=== PATIENT | female | born 1995 | race Caucasian/White ===

== ENCOUNTER 2025-06-09 11:40 | Observation (INO) | payer OTHER, SELFPAY ==
--- OUTSIDE RECORDS SUMMARY | 2025-06-09 11:54 | XMS_ITS | Encounter Summary ---
Author Organization [facility] Address [address] [place] [address] Care Team Providers Care Building Maintenance Technician Name Role Phone Jack Cruz MD Primary Care Provider [phone] Encounter Details Date Type Department Care Team (Late st Contact Info) Description 08/01/2019 Telephone [facility] [address] [place] [address] Alvin Pickard MD [address] [place] [id number] Social History Tobacco Use Types Packs/Day Years Used Date Smoking Tobacco: Never Smokeless Tobacco: Never Alcohol Use Standard Drinks/Week Comments Yes 0 (1 standard drink = 0.6 oz pur e alcohol) AUDIT-C Answer Date Recorded Frequency of Alcohol Consumption Monthly or less 07/08/2019 Average Number of Drinks Not on file 020 Frequency of Binge Drinking Not on file 06/16 Comments Unknown Sex and Gender Information Value Date Recorded Sex Assigned at Not on file Legal Sex Female 8:25 AM CDT Gender Identity Not on file Sexual Orientation Not on file documented as of this encounter Miscellaneous Notes * Telephone Encounter - Janessa Thomas - 08/01/2019 11:47 AM CST Per fax back cpt code 1328-50 approved, auth # [id number], 08/18/19 - 10/18/19. NPR for cpt code 56281-73. B2B OUTSIDE SALES REPRESENTATIVE documented in this encounter Plan of Treatment Not on file documented as of this encounter Visit Diagnoses Not on filedocumented in this encounter Additional Health Concerns Infection Onset Date Last Indicated Resolved Time COVID-19 Under Investigation 10/31/2019 10/31/2019 11/01/2019 6:33 AM CDT documented as of this encounter Care Teams Building Maintenance Technician Relationship Specialty Start Date End Date Jack Cruz MD PCP - General 06/14/19 documented as of this encounter
--- OUTSIDE RECORDS SUMMARY | 2025-06-09 11:54 | XMS_ITS | Clinical Summary ---
Author Organization [facility] Address [address] [place] [address] Care Team Providers Care Pressure Tank Operator Name Role Phone Unavailable Primary Care Provider Unavailabl e Social History Tobacco Use Types Packs/Day Years Used Date Smoking Tobacco: Never Assessed Comments Unknown Sex and Gender Information Value Date Recorded Sex Assigned at Not on file Legal Sex Female 11:25 PM MANAGER IMAGE Gender Identity Not on file Sexual Orientation Not on file Plan of Treatment Health Maintenance Due Date Last Done Comments Cervical Cancer Screening Pa p Smear (Age 21 to 29) Every 3 Years 1995 Cervical Cancer Screening 1995 Annual Physical 10/20/1998 Hepatitis C 10/20/2013 DTaP, Tdap and Td Vaccines ( 1 - Tdap) 10/20/2014 Hepatitis B Vaccines (1 of 3 - 19+ 3-dose series) 10/20/2014 HPV Vaccines (1 - 3-dose SCD M series) 10/20/2022 COVID-19 Vaccine (1 - 2024-2 6 season) 2025 Influenza Adult (#1) 2025 Hepatitis A Vaccines Aged Out No long er eligible based on patient's age to complete this topic Meningococcal B Vaccine Aged Out No l onger eligible based on patient's age to complete this topic Meningococcal Vaccine Aged Out No kat micki eligible based on patient's age to complete this topic Pneumococcal Vaccine: Pediat rics (0 to 5 Years) and At-Risk Patients (6 to 49 Years) Aged Out No longer eligible b ased on patient's age to complete this topic RSV Immunizations Under 20 Months Aged Out No longer eligible based on patient's age to complete this topic
--- OUTSIDE RECORDS SUMMARY | 2025-06-09 11:54 | XMS_ITS | Clinical Summary ---
Author Organization [facility] Address [address] [facility] [address] [place] [address] Care Team Providers Care Caser Name Role Phone Jack Cruz MD Primary Care Provider [phone] Source Comments [facility],non-owned Affiliates and Associated Physician Practices is amultiple site organization consisting of ambulatory clinics and hospital sitesin [place], [place], [place] and [place]. This disclosure is being madepursuant to the Care Everywhere program and may not contain all information available regarding this patient. Last updated 18.[facility] Allergies Active Allergy Reactions Criticality Noted Date Comments Nitrofurantoin Nausea and/or Vomiting 0 Medications * Be aware that medications may not be up to date on this document. Alwaysverify current medications with the patient. lamoTRIgine (LAMICTAL) 25 MG tablet 50 mg 9 Active buPROPion SR 12hr (WELLBUTRIN-SR) 100 MG tablet 150 mg 9 Active XULANE 150-35 MCG/24HR patch 9 Active ondansetron (ZOFRAN) 4 MG tablet Take 4 mg by mouth every 6 hours as needed for Nausea/Vomiting Active HYDROcodone-justine taminophen (NORCO) 5-325 MG tablet Take 1 tablet by mouth every 8 hours as needed for Pain [id number], [id number] 15 tablet 0 Active Additional Information Patient not taking.Reported on 11/18/2019 ondansetron, disintegrating, (ZOFRAN ODT) 4 MG tablet Take 4 mg by mouth 0 Active Active Problems Problem Noted Date Diagnosed Date S/P breast reconstruction, bilateral 11/08/2019 Preop examination 10/31/2019 Breast pain 07/08/2019 Social History Tobacco Use Types Packs/Day Years Used Date Smoking Tobacco: Never Smokeless Tobacco: Never Alcohol Use Standard Drinks/Week Comments Yes 0 (1 standard drink = 0.6 oz pur e alcohol) occ AUDIT-C Answer Date Recorded Frequency of Alcohol Consumption Monthly or less 07/08/2019 Average Number of Drinks Not on file 020 Frequency of Binge Drinking Not on file 06/16 Comments No Sex and Gender Information Value Date Recorded Sex Assigned at Not on file Legal Sex Female 8:25 AM CDT Gender Identity Not on file Sexual Orientation Not on file Last Filed Vital Signs Vital Sign Reading Time Taken Comments Blood Pressure 129/87 11/18/2019 1:25 PM CDT Pulse 78 11/18/2019 1:25 PM CDT Temperature 36.8 C (98.3 F) 11/18/2019 1:25 PM CDT Respiratory Rate 20 11/11/2019 2:09 PM CDT Oxygen Saturation 99% 11/18/2019 1:25 PM CDT Inhaled Oxygen Concentration - - Weight 67.6 kg (149 lb) 11/18/2019 1:25 PM CDT Height 172.7 cm (5' 8) 11/18/2019 1:25 PM CDT Body Mass Index 22.66 11/18/2019 1:25 PM CDT Plan of Treatment Health Maintenance Due Date Last Done Comments HIV SCREENING 10/20/2010 HEPATITIS C SCREENING 10/16/2013 DTAP/TDAP/TD VACCINES (1 - Tdap) 10/20/2014 HEPATITIS B VACCINE (1 of 3 - 19+ 3-dose series) 10/20/2014 PAP SMEAR 10/20/2016 HPV VACCINE (1 - 3-dose SCDM series) 10/20/2022 DEPRESSION SCREENING 06/15/2024 COVID-19 VACCINE (1 - 2024-2 6 season) 2025 INFLUENZA VACCINE (#1) 2025 04/18/2018 ZOSTER VACCINE (1 of 2) 10/20/2045 HIB VACCINE Aged Out No longer eligi ble based on patient's age to complete this topic MENINGOCOCCAL (Group B) VACC INE SHARED DECISION-MAKING Aged Out No longer eligibl e based on patient's age to complete this topic MENINGOCOCCAL GROUPS A/C/Y/W VACCINE Aged Out No longer eligible b ased on patient's age to complete this topic PNEUMOCOCCAL VACCINE Aged Out No long er eligible based on patient's age to complete this topic Insurance [facility] Care Teams Caser Relationship Specialty Start Date End Date Jack Cruz MD PCP - General 06/14/19
--- OUTSIDE RECORDS SUMMARY | 2025-06-09 11:54 | XMS_ITS | Clinical Summary ---
Author Organization [facility] Address [address] [place] [address] Phone Care Team Providers Care Regulatory Assistant Name Role Phone Raul Peña APRN, METAL PATTERNMAKER Primary Care Pr ovider Allergies Active Allergy Reactions Criticality Noted Date Comments Nitrofuran Derivatives Vomiting 12/05/2019 Medications sertraline (ZOLOFT) 50 MG TabletIndication s:Moderate episode of recurrent major depressive disorder Take 1 Tablet by mouth daily. 30 Tablet 2 12/12/2024 Active Active Problems Problem Noted Date Diagnosed Date MDD (major depressive disord er), recurrent episode, moderate 07/01/2024 Borderline personality disorder 05/03/2024 Painful piezogenic pedal papules 07/24/2021 S/P breast reconstruction, bilateral 11/08/2019 Breast pain 07/08/2019 Personality disorder 05/05/2019 Depression Comments Yes Encounters Date Type Department Care Team Description 03/24/2025 2:15 PM CDT [facility] [address] [place] [id number] Danisha Mar LCPC MDD (major depressive disorder), recurrent episode, moderate (Primary Dx) Discharge Disposition: Discharged to home or Selfcare 03/24/2025 Travel 03/17/2025 8:30 AM CDT [facility] [address] [place] [address] Danisha Mar, [facility] MDD (major depressive disorder), recurrent episode, moderate (Primary Dx); Borderline personality disorder Discharge Disposition: Discharged to home or Selfcare 03/17/2025 Travel from Last 3 Months Immunizations Immunization Administration Dates Next Due Hepatitis B Vaccine 02/03/2020 Influenza Vaccine, MDCK,quad rivalent, pres free 03/20/2020 Influenza Vaccine, Quadrivalent, PF 05/03/2021,1 06/18/2017 TB Skin Test 10/29/2021,02/03/2020,12/22/2019 TDAP Vaccine 12/22/2019 Family History Medical History Relation Name Comments Alcohol Abuse Father Chris Bipolar Disorder Father Chris Diabetes Father Chris Diabetes Maternal Grandfather Juan Depression Mother Mykel Thyroid Disease Mother Mykel Low thyroid Relation Name Status Comments Brother Iggy Alive Father Chris Alive Maternal Grandfather Juan Mother Mykel Alive Sister Angelica Alive Social History Tobacco Use Types Packs/Day Years Used Date Smoking Tobacco: Never Smokeless Tobacco: Never Tobacco Cessation:Counseling Given: No Alcohol Use Standard Drinks/Week Comments Not Currently 0 (1 standard drink = 0.6 oz pur e alcohol) Rarely [employer] Answer Date Recorded In the past 12 months has [employer], gas, oil, or water [employer] threatened to shut off services in your home? Yes 07/04/2024 Social Connection and Isolation Panel Answer Date Recorded In a typical week, how many times do you talk on the phone with family, friends, or neighbors? More than three times a week 07/04/2024 How often do you get togethe r with friends or relatives? Three times a week 07/04/2024 How often do you attend chur ch or tenriism services? 1 to 4 times per year 07/04/2024 Do you belong to any clubs o r organizations such as synagogue groups, unions, fraternal or athletic groups, or school groups? No 07/04/2024 How often do you attend meet ings of the clubs or organizations you belong to? 1 to 4 times per year 07/04/2024 Are you , , di vorced, , never , or living with a partner? 07/04/2024 AUDIT-C Answer Date Recorded Q1: How often do you have a drink containing alc ohol? Monthly or less 07/04/2024 Q2: How many drinks containi ng alcohol do you have on a typical day when you are drinking? 3 or 4 07/04/2024 Q3: How often do you have si x or more drinks on one occasion? Never 07/04/2024 Overall Financial Resource Strain (CARDIA) Answe r Date Recorded How hard is it for you to pa y for the very basics like food, housing, medical care, and heating? Hard 07/04/2024 PHQ-2 Answer Date Recorded Total Score - Questions 1-9 14 11/15 [facility] - Occupational Stress Questionnaire Answer Date Recorded Do you feel stress - tense, restless, nervous, or anxious, or unable to sleep at night because your mind is troubled all the time - these days? Very much 07/04/2024 Exercise Vital Sign Answer Date Recorde d On average, how many days pe r week do you engage in moderate to strenuous exercise (like a brisk walk)? 5 days 07/04/2024 On average, how many minutes do you engage in exercise at this level? 60 min 07/04/2024 Hunger Vital Sign Answer Date Recorded Within the past 12 months, y ou worried that your food would run out before you got the money to buy more. Sometimes true Within the past 12 months, t he food you bought just didn't last and you didn't have money to get more. Sometimes true PRAPARE - Transportation Answer Date Re corded In the past 12 months, has l ack of transportation kept you from medical appointments or from getting medications? No 06/16 In the past 12 months, has l ack of transportation kept you from meetings, work, or from getting things needed for daily living? No 07/04/2024 Housing Stability Vital Sign Answer Cornelio e Recorded In the last 12 months, was t here a time when you were not able to pay the mortgage or rent on time? Yes 07/04/2024 In the past 12 months, how m any times have you moved where you were living? 1 07/04/2024 At any time in the past 12 m [facility], were you homeless or living in a halfway (including now)? No 07/04/2024 Education Answer Date Recorded What is the highest level of school you have completed or the highest degree you have received? Associate degree: academic program 07/29/2021 Sexually Active Control Partners Comments Yes Male Condom, Oral Contraceptive Male Comments Yes Sex and Gender Information Value Date Recorded Sex Assigned at Not on file Legal Sex Female 9:43 AM CDT Gender Identity Not on file Sexual Orientation Not on file Last Filed Vital Signs Vital Sign Reading Time Taken Comments Blood Pressure 130/82 12/12/2024 3:28 PM CDT Pulse 99 12/12/2024 3:28 PM CDT Temperature 36.3 C (97.4 F) 12/12/2024 3:28 PM CDT Respiratory Rate 16 12/12/2024 3:28 PM CDT Oxygen Saturation 100% 12/12/2024 3:28 PM CDT Inhaled Oxygen Concentration - - Weight 73 kg (160 lb 14.4 oz) 12/12/2024 3:28 PM CDT Height 170.2 cm (5' 7) 12/12/2024 3:28 PM CDT Body Mass Index 25.2 12/12/2024 3:28 PM CDT Plan of Treatment Health Maintenance Due Date Last Done Comments Hepatitis C Virus (HCV) Screening 1995 Varicella Immunization (1 of 2 - 13+ 2-dose series) 10/20/2008 Hepatitis B Immunization (2 of 3 - 19+ 3-dose series) 03/02/2020 02/03/2020 Influenza Immunization (#1) 02/13/202504/15, 03/20/2020, 04/18/2018 Pap Smear 07/21/2026 07/21/2023, 05/15, 11/03/2018, Additional history exists Td Immunization Every 10 Years (Adults With 1 Tdap) 12/21/2029 12/22/2019 Respiratory Syncytial Virus (RSV) Immunization (Adult) (1 - 1-dose 75+ series) 10/20/2070 SARS-COV-2 Immunization Discontinued 01/29/2021, 01/08 Human Papillomavirus (HPV) Immunization (No Doses Required) Completed Meningococcal Immunization (ACWY) Aged Out No longer eligible based on patient's age to complete this topic Pneumococcal Immunization Combined Aged Out No longer eligible based on patient's age to complete this topic Rotavirus Immunization Aged Out No lo nger eligible based on patient's age to complete this topic Goals Goal Patient Goal Type Associated Problems Recent Progress Patient-Stated? Author Manage emotions and stressors Behavioral Health On track( 025 2:21 PM CDT) Danisha Sheffield, [facility] Note: Goal/Objective: Increase ability to manage emotions and stressors. Anticipated Time Frame for Goal Completion: 6 months Goal Reviewed with: patient Readiness to change: Ready to change Department associated with goal: [facility] Steps to achieve goal: will identify at least two coping skills/activities/habits that have helped to manage anxiety in the past. will identify at least three new coping skills/activities/habits that may help to prevent and/or cope with anxiety. 3. will identify a plan to implement coping skills and follow this plan for two weeks and evaluate the impact on anxiety 4. Will attend individual and/or group therapy at least 1x/month at least 6 sessions Procedures Procedure Name Priority Date/Time Associated Diagnosis Comments PATHOLOGY CYTOLOGY DOCK COORDINATOR Routine 07/21/2023 4:13 PM PEST CONTROL WORKER Encounter for well woman exam with routine gynecological exam from Last 3 Months or Most Recently Relevant to Health Maintenance Results * PATHOLOGY CYTOLOGY DOCK COORDINATOR (07/21/2023 4:13 PM PEST CONTROL WORKER) SPECIMEN ADEQUACY Satisfactory for evaluation. Endocervical/transf ormation zone component is absent. 07/29/2023 5:39 PM PEST CONTROL WORKER [facility] GENERAL CATEGORY EPITHELIAL CELL ABNORMALITY. 07/29/2023 5:39 PM PEST CONTROL WORKER [facility] DESCRIPTIVE DIAGNOSIS Low grade squamous intraepithelial lesion. 07/29/2023 5:39 PM PEST CONTROL WORKER [facility] at 1739 PEST CONTROL WORKER OTHER FINDINGS Predominance of coccobacilli present consistent with shift in vaginal miya. 07/29/2023 5:39 PM PEST CONTROL WORKER [facility] Automated Examination Analysis of this sample has been assisted by an automated imaging and review system ([employer] Imaging System, [employer], [place], [place]). This case is further evaluated and finalized by a waste baler and/or pathologist. 07/29/2023 5:39 PM PEST CONTROL WORKER [facility] Disclaimer The PAP smear is a screening test designed to detect cancerous or precancerous cells of the uterine cervix. It is one of the best means available for detection of cervical cancer but still carries an inherent false-negative rate. The consequences of a false-negative PAP result can be minimized by adhering to current screening guidelines. The following are general guidelines recommended by the ACS, ASCP, ASCCP, and ACOG: PAP testing is recommended every three years for women 21-29, Co-Testing, a PAP test in conjunction with an HPV (Human Papillomavirus) test for women ages 30-65, and no PAP or HPV testing for women under the age of 21 or older than 65 unless clinically indicated. 07/29/2023 5:39 PM PEST CONTROL WORKER [facility] Case Report Gynecologic Cytology Report Case: [id number] Authorizing Provider: Pascual Bowen MD Collected: 07/21/2023 04:13 PM Ordering Location: [facility] - Received: 07/21/2023 04:13 PM Obstetrics & Gynecology - [place] First Screen: Talisha Pratt Pathologist: Giacomo Montoya MD Specimen: TP Screen, Cervix/Endocervix 07/29/2023 5:39 PM PEST CONTROL WORKER [facility] Other CERVIX UTERI STRUCTURE / Unknown Non-Phlebotomy Collection / Unknown 07/21/2023 4:13 PM PEST CONTROL WORKER 07/21/2023 4:13 PM PEST CONTROL WORKER us Pascual Bowen MD PATHOLOGY/CYTOLOGY ORDERABLES Final Result [facility] [address] [place] [address], [place] from Last 3 Months or Most Recently Relevant to Health Maintenance Insurance [facility] Care Teams Regulatory Assistant Relationship Specialty Start Date End Date Raul Peña APRN, [facility] [address] [address] PCP - General Advanced Practice Nurse 12/12/24
--- OUTSIDE RECORDS SUMMARY | 2025-06-09 11:54 | XMS_ITS | Encounter Summary ---
Author Organization [facility] Address [address] [place] [address] Phone Care Team Providers Care Filter Tank Tender Name Role Phone Jack Cruz MD Primary Care Provider [phone] Raul Peña APRN, CNP Primary Care Pr ovider Reason for Visit * Reason Comments Medication Refill Encounter Details Date Type Department Care Team (Late st Contact Info) Description 04/20/2021 Refill [facility] - Family Medicine [facility] [address] [place] [phone] Jack Cruz MD [address] [place] [address] Medication Refill Social History Tobacco Use Types Packs/Day Years Used Date Smoking Tobacco: Never Smokeless Tobacco: Never Alcohol Use Standard Drinks/Week Comments Yes 0 (1 standard drink = 0.6 oz pur e alcohol) occasionally PHQ-2 Answer Date Recorded PHQ-2 Score 7 02/11/2019 Education Answer Date Recorded What is the highest level of school you have completed or the highest degree you have received? Associate degree: occupational, technical, or vocational program 07/31/2020 Sexually Active Control Partners Comments Yes Patch, Male Condom Male Comments No Sex and Gender Information Value Date Recorded Sex Assigned at Not on file Legal Sex Female 9:43 AM CDT Gender Identity Not on file Sexual Orientation Not on file COVID-19 Exposure Response Date Recorded In the last month, have you been in contact with someone who was confirmed or suspected to have Coronavirus / COVID-19? No / Unsure 04/04/2021 7:50 AM CDT documented as of this encounter Miscellaneous Notes * Telephone Encounter - Re Lyons RN - 04/22/2021 9:58 AM CST Medication failed the protocol, provider to review and approve the medication order if appropriate. Requested Prescriptions Pending Prescriptions Disp Refills buPROPion (WELLBUTRIN) 100 MG Tablet [Pharmacy Med Name: BUPROPION 100MG TABLETS] 180 Tablet 1 Sig: TAKE 1 TABLET BY MOUTH TWICE DAILY Bupropion (6 Month Refill Only) Protocol Failed - 04/20/2021 10:04 AM Failed - Has an encounter in the past 6 months with a depression or anxiety visit diagnosis Passed - No test in the past 12 months or most recent test was negative Passed - No active on record Passed - Visit with relevant provider in past 6 months or upcoming 90 days Recent Visits Date Type Provider Dept 03/26/21 Telemedicine Raul Peña APRN, WET PRIMER POWDER BLENDER [facility] [place] 12/05/20 Office Visit Jack Cruz MD [facility] [place] 11/05/20 Office Visit [facility] Showing recent visits within past 182 days and meeting all other requirements Future Appointments No visits were found meeting these conditions. Showing future appointments within next 90 days and meeting all other requirements Passed - Patient has established therapy with Bupropion for at least 6 months SUSPENSION AND STEERING MECHANIC documented in this encounter Plan of Treatment Not on file documented as of this encounter Visit Diagnoses Not on filedocumented in this encounter Additional Health Concerns Infection Onset Date Last Indicated Resolved Time COVID - 19 05/16/2021 05/16/2021 05/16/2021 8:55 AM AUTO SUSPENSION AND STEERING MECHANIC COVID - 19 05/20/2021 05/20/2021 06/09/2021 12:1 6 AM AUTO SUSPENSION AND STEERING MECHANIC Respiratory Rule Out - RPA 09/08/2022 09/08/2022 0 09/08/2022 2:21 PM CDT COVID - 19 12/01/2022 12/01/2022 12/11/2022 12:1 6 AM CDT COVID - 19 Confirmed 12/01/2022 12/01/2022 023 12:16 AM CDT COVID - 19 01/15/2023 01/15/2023 01/15/2023 9:02 AM CDT COVID - 19 01/15/2023 01/15/2023 01/25/2023 12:1 6 AM CDT Respiratory Rule-Out 08/07/2023 08/07/2023 024 8:55 AM AUTO SUSPENSION AND STEERING MECHANIC COVID - 19 08/07/2023 08/07/2023 08/07/2023 8:53 AM AUTO SUSPENSION AND STEERING MECHANIC COVID - 19 Confirmed 08/07/2023 08/07/2023 024 12:16 AM CDT COVID - 19 05/22/2024 05/22/2024 05/22/2024 4:24 PM AUTO SUSPENSION AND STEERING MECHANIC COVID - 19 09/26/2024 09/26/2024 09/26/2024 1:01 PM CDT Respiratory Rule-Out 09/26/2024 09/26/2024 025 1:01 PM CDT COVID - 19 10/19/2024 10/19/2024 10/19/2024 8:24 AM CDT Assessment Noted Time PHQ-9 Depression Total Score: 7 11/20/19 19 1:17 PM CDT documented as of this encounter Care Teams Filter Tank Tender Relationship Specialty Start Date End Date Jack Cruz MD PCP - General Family Medicine 11/19/18 12/11/24 Raul Peña APRN, WET PRIMER POWDER BLENDER [address] [place] [address] PCP - General Advanced Practice Nurse 12/12/24 documented as of this encounter
--- OUTSIDE RECORDS SUMMARY | 2025-06-09 11:54 | XMS_ITS | Encounter Summary ---
Author Organization [facility] Address [address] [place] [address] Phone Care Team Providers Care Supervisor Picking Crew Name Role Phone Jack Cruz MD Primary Care Provider [phone] Raul Peña APRN, CNP Primary Care Pr ovider Reason for Visit * Reason Comments Medication Refill Encounter Details Date Type Department Care Team (Late st Contact Info) Description 10/20/2021 Refill [facility] - Family Medicine [facility] [address] [place] [id number] Jack Cruz MD [address] [place] [address] Medication Refill Social History Tobacco Use Types [...] 07/29/2021 Sexually Active Control Partners Comments Yes Patch, Male Condom Male Comments No Sex and Gender Information Value Date Recorded Sex Assigned at Not on file Legal Sex Female 9:43 AM CDT Gender Identity Not on file Sexual Orientation Not on file COVID-19 Exposure Response Date Recorded In the last 10 days, have yo u been in contact with someone who was confirmed or suspected to have Coronavirus/COVID-19? No / Unsure 10/03/2021 8:36 AM CDT documented as of this encounter Miscellaneous Notes * Telephone Encounter - Re Lyons RN - 2021 11:33 AM CDT Medication failed the protocol, provider to review and approve the medication order if appropriate. Requested Prescriptions Pending Prescriptions Disp Refills buPROPion (WELLBUTRIN) 100 MG Tablet [Pharmacy Med Name: BUPROPION 100MG TABLETS] 180 Tablet 1 Sig: TAKE 1 TABLET BY MOUTH TWICE DAILY Bupropion (6 Month Refill Only) Protocol Failed - 10/20/2021 5:48 AM Failed - Has an encounter in the past 6 months with a depression or anxiety visit diagnosis Passed - No test in the past 12 months or most recent test was negative Passed - No active on record Passed - Visit with relevant provider in past 6 months or upcoming 90 days Recent Visits Date Type Provider Dept 07/29/21 Office Visit Jack Cruz MD [facility] 07/01/21 Office Visit Jack Cruz MD [facility] 05/03/21 Office Visit Shanice Boykin APRN, SENIOR PROGRAM ANALYST [facility] Showing recent visits within past 182 days and meeting all other requirements Future Appointments No visits were found meeting these conditions. Showing future appointments within next 90 days and meeting all other requirements Passed - Patient has established therapy with Bupropion for at least 6 months documented in this encounter Plan of Treatment Not on file documented as of this encounter Visit Diagnoses Not on filedocumented in this encounter Additional Health Concerns Infection Onset Date Last Indicated Resolved Time Respiratory Rule Out - RPA 09/08/2022 09/08/2022 0 09/08/2022 2:21 PM CDT COVID - 19 12/01/2022 12/01/2022 12/11/2022 12:1 6 AM CDT COVID - 19 Confirmed 12/01/2022 12/01/2022 023 12:16 AM CDT COVID - 19 01/15/2023 01/15/2023 01/15/2023 9:02 AM CDT COVID - 19 01/15/2023 01/15/2023 01/25/2023 12:1 6 AM CDT Respiratory Rule-Out 08/07/2023 08/07/2023 024 8:55 AM EXCEPTIONAL STUDENT EDUCATION TEACHER COVID - 19 08/07/2023 08/07/2023 08/07/2023 8:53 AM EXCEPTIONAL STUDENT EDUCATION TEACHER COVID - 19 Confirmed 08/07/2023 08/07/2023 024 12:16 AM CDT COVID - 19 05/22/2024 05/22/2024 05/22/2024 4:24 PM EXCEPTIONAL STUDENT EDUCATION TEACHER COVID - 19 09/26/2024 09/26/2024 09/26/2024 1:01 PM CDT Respiratory Rule-Out 09/26/2024 09/26/2024 025 1:01 PM CDT COVID - 19 10/19/2024 10/19/2024 10/19/2024 8:24 AM CDT Assessment Noted Time PHQ-9 Depression Total Score: 7 11/20/19 19 1:17 PM CDT documented as of this encounter Care Teams Supervisor Picking Crew Relationship Specialty Start Date End Date Jack Cruz MD PCP - General Family Medicine 11/19/18 12/11/24 Raul Peña, EDITING INTERN, SENIOR PROGRAM ANALYST [address] [address] PCP - General Advanced Practice Nurse 12/12/24 documented as of this encounter
--- OUTSIDE RECORDS SUMMARY | 2025-06-09 11:54 | XMS_ITS | Continuity of Care Document ---
Author Organization [facility] Address [address] [place] [address] [place] [address] Assessment No assessment recorded. Plan of Treatment Reminders Order Date Submit Date Provider Last Modified By Organization Details Last Modified Time Details Appointments OB PROBLEM 2024 10:30A Bety CHOPRA MD Not available Not available Not available OB ROUTINE 2025 08:45A Bety CHOPRA MD Not available Not available Not available U/S OB GROWTH 2025 03:00P M ULTRASOUND Not available Not available Not available OB ROUTINE 2025 03:45P M NIKKI VALENTE MD Not available Not available Not available Lab urinaly sis, dipstic k [address], [address], [address], [place], [address], 06/09/2025 12:06:56 culture , urine 2024 025 [facility] (Lab), [address] [place], [address], 06/09/2025 12:07:27 Referral None recorde d. Procedures None recorde d. Surgeries None recorde d. Imaging None recorde d. Medication Orders Macrobi d 100 mg capsule 2024 025 [id number], [address], [place], [phone], 06/09/2025 12:34:27 Patient TargetsNo targets recorded. Patient InstructionsNo instructions recorded. Reason for Referral None Reported. Results Created Date Observation Date Name Description Value Unit Range Abnormal Flag Note LastModifiedBy Organization Detail LastModifiedTime 03/22/2003/22/2025 CT/GC AND TRICH OMONA S VAGIN JOSSIE (RRNA ), URINE chlamydia trachomatis, PCR Negati ve negati ve Not Available [facility] (Lab) [address] [facility], [place], [address], 03/25/2025 06:40:53 03/22/2003/22/2025 CT/GC AND TRICH OMONA S VAGIN JOSSIE (RRNA ), URINE neisseria gonorrhoeae, PCR Negati ve negati ve Not Available [facility] (Lab) [address] [facility], [place], [address], 03/25/2025 06:40:53 03/22/2003/22/2025 CT/GC AND TRICH OMONA S VAGIN JOSSIE (RRNA ), URINE trichomonas vaginalis ribosomal RNA (rrna) Negati ve negati ve 49_CL _SOUR CETVG : Urine - Bladd er Not Available [facility] (Lab) [address] [facility], [place], [address], 03/25/2025 06:40:53 03/22/2003/22/2025 CULTU RE: URINE result report SEE RESULT S BELOW abnormal Test: Cultu re: Urine Speci men Sourc e: Urine - Clean Catch Speci men Type: Urine Speci men Date: 2024 1041 Resul t Date: 03/25 0537 Resul t Statu s: Final resul t Abnor mal: Yes Resul ting Lab: [facility] [address] [facility] [address] Tel: [phone] CULTU RE ----- ----- ----- --- >100, 000 CFU/m l Allos cardo via omnic olens (Abno rmal) The clini mele signi fican ce of Allos cardo via omnic olens in the urina ry tract is not well defin ed. Susce ptibi lity testi ng guide lines are not avail able, howev er liter ature studi es indic ate the organ ism is susce ptibl e to beta- lacta ms and tetra cycli ne. Not Available [facility] (Lab) [address] [facility], [place], [address], 03/25/2025 06:40:54 04/18/2004/18/2025 HEMOG LOBIN (HGB) HGB 12.7 g/dL (based on docume nted legal sex) 11.6-[address] [facility] (Lab) [address] [facility], [place], [address], 04/19/2025 12:39:16 04/18/20 25 04/18/2025 HEMAT OCRIT (HCT) HCT 39.5 % (based on docume nted legal sex) 34.0-[address] [facility] (Lab) [address] [facility], [place], [address], 04/19/2025 12:39:16 04/18/20 25 04/18/2025 GTT - GESTA MELIDA L VARINDER Rojas, ACOG OB glucose, 1 hour screen 97 mg/dL 70-135 Not Available [facility] (Lab) [address] [place], [address], 04/19/2025 12:39:16 04/18/20 25 04/18/2025 HIV 1/2 ANTIG EN/AN TIBOD Y, REFLE X CONFI RMATI ON HIV antigen/anti body Nonrea ctive nonrea ctive HIV-1 antig en and HIV-1 /HIV- 2 antib odies were not detec sherlyn. No labor atory evide nce of HIV infec tion. Not Available [facility] (Lab) [address] [facility], [place], [address], 04/19/2025 12:39:17 04/18/20 25 04/18/2025 RPR SCREE N, REFLE X TITER /CONF IRMAT ION RPR qualitative Nonrea ctive nonrea ctive Not Available [facility] (Lab) [address], [place], [address], 04/19/2025 12:39:17 03/22/20 25 03/22/2025 US, obste tric, follo w-up No observ ation record ed. [email or web address] [facility] [address], [place], [address], 03/22/2025 15:08:09 03/22/20 25 03/22/2025 US, obste tric, follo w-up No observ ation record ed. [email or web address] Ruthann [address], [place], [address], 03/24/2025 01:45:55 05/02/20 25 05/03/2025 US, obste tric, follo w-up No observ ation record ed. [facility] [address], [place], [address], 05/03/2025 13:29:24 05/02/20 25 05/02/2025 US, obste tric, follo w-up No observ ation record ed. RAJIV [address], [place], [address], 05/05/2025 17:50:17 06/01/20 25 06/01/2025 US, obste tric, follo w-up No observ ation record ed. [facility] [address], [place], [address], 06/01/2025 17:30:03 06/01/20 25 06/01/2025 US, obste tric, follo w-up No observ ation record ed. [email or web address] Ruthann [address], [place], [address], 06/05/2025 11:37:37 Result Notes None recorded. Problems Name Problem SNOMED Code Status Onset Date Resolution Date Notes Provider Name and Address Organization Details Recorded Time 03558150 Active 025 [facility] 5 10:46:32 Problem Notes None recorded. Procedures Surgical History Date Name Laterality Status Provider Name and Address Organization Details Recorded Time 5 Date of Last Pap Smear completed [facility] 03/22/2025 10:40:36 0 removal of breast implant completed [facility] 03/22/2025 10:46:06 2 Breast Implants completed [facility] 03/22/2025 10:45:46 Imaging Results None recorded. Procedure Notes None recorded. Medical Equipment None Reported. Allergies Allergen ID Allergen Name Allergen Category Reaction Reaction Severity Criticality Documentation Date Start Date Code Code System Note Provider Name and Address Organization Details Recorded Time 50003 nitrofura ntoin medicatio n Not available Not available Not available 03/22/2025 7454 RxNorm Courtney [facility] 5 10:22:37 35802 Macrobid medicatio n nausea vomiting Not available Not available Not available 05/02/20252019 94094 1 RxNorm Not Available [employer] - prod 5 03:19:41 07319 nitrofura ntoin, macrocrys tals / nitrofura ntoin, monohydra te medicatio n vomiting Not available low 05/02/20252019 69349 2 RxNorm Not Available [employer] - prod 5 03:19:44 Medications Name Sig Start Date Stop Date Status Note LastModified by Organization Details LastModified Time hydrocodone 5 mg-acetamin ophen 325 mg tablet TAKE 1 TABLET BY MOUTH EVERY 6 HOURS NEEDED FOR PAIN 03/22 completed Not Available Not Available Not Available metronidazo le 0.75 % (37.5 mg/5 gram) vaginal gel APPLY VAGINALLY EVERY NIGHT FOR 5 DAYS 03/22 completed Not Available Not Available Not Available sertraline 100 mg tablet 2024 active Not Available Not Available Not Avai lable ciprofloxac in 500 mg tablet TAKE 1 TABLET BY MOUTH TWICE DAILY FOR 7 DAYS 03/22 completed Not Available Not Available Not Available sulfamethox azole 800 mg-trimetho prim 160 mg tablet TAKE 1 TABLET BY MOUTH TWICE DAILY FOR 7 DAYS 03/22 completed Not Available Not Available Not Available aspirin 81 mg tablet,antionette yed release Take 1 tablet every day by oral route. 2024 active Not Available Not Available Not Avai lable amoxicillin 500 mg tablet TAKE 1 TABLET BY MOUTH EVERY 8 HOURS FOR 5 DAYS 05/29 completed Not Available Not Available Not Available ondansetron 8 mg disintegrat ing tablet Place 1 tablet twice a day by transling ual route. 2024 active Not Available Not Available Not Avai lable lamotrigine 25 mg tablet TAKE 3 TABLETS BY MOUTH DAILY 03/22 completed Not Available Not Available Not Available Macrobid 100 mg capsule Take 1 capsule every 12 hours by oral route. 2024 active Not Available Not Available Not Avai lable Baby Aspirin 81 mg chewable tablet Chew 1 tablet every day by oral route. 06/09 completed Not Available Not Available Not Available methylpredn isolone 4 mg tablets in a dose pack FOLLOW PACKAGE DIRECTION S 03/22 completed Not Available Not Available Not Available amoxicillin 875 mg-potassiu m clavulanate 125 mg tablet TAKE 1 TABLET BY MOUTH EVERY 12 HOURS 03/22 completed Not Available Not Available Not Available Zoloft 06/09 completed Not Available Not Available Not Available Zofran (base) 06/09 completed Not Available Not Available Not Available Vitals Date Recorded Body weight Systolic And Diastolic Provider Name and Address Organization Details Last Updated DateTime 06/09/2025 82142.94645 g 129/84 mm[Hg] Keyanna Tee [place] - [facility] 06/09/2025 12:04:56 Social History Question Answer Notes LastModified by Organizat ion Details LastModified Time Tobacco Smoking Status Never Smoker Courtney Wynne [facility], [facility] 03/22/2025 10:43:09 Are You Blind Or Do You Have Difficulty Seeing? Yes Glasses [email or web address] Information not available 03/22/2025 What Is Your Level Of Caffeine Consumption? Moderate [email or web address] Information not available 03/22/2025 In The 14 Days Before Symptom Onset, Have You Had Close Contact With A Laboratory-confir med COVID-19 While That Case Was Ill? No Information not available 03/22/2025 In The 14 Days Before Symptom Onset, Have You Had Close Contact With A Person Who Is Under Investigation For COVID-19 While That Person Was Ill? No [email or web address] Information not available 03/22/2025 Have You Been To An Area Known To Be High Risk For COVID-19? No [email or web address] Information not available 03/22/2025 Are You Deaf Or Do You Have Serious Difficulty Hearing? Yes Information not available 03/22/2025 What Type Of Diet Are You Following? REGULAR [email or web address] Information not available 03/22/2025 What Is The Highest Grade Or Level Of School You Have Completed Or The Highest Degree You Have Received? TP68308-1 [email or web address] Information not available 03/22/2025 Are There Any Guns Present In Your Home? No [email or web address] Information not available 03/22/2025 Do You Use Protection During Sex? No Information not available 03/22/2025 Do You Use Your Seat Belt Or Car Seat Routinely? Yes [email or web address] Information not available 03/22/2025 Are You Sexually Active? Yes Information not available 03/22/2025 Do You Have Smoke And Carbon Monoxide Detectors In Your Home? Yes [email or web address] Information not available 03/22/2025 Do You Use Sunscreen Routinely? No Information not available 03/22/2025 Do You Have Difficulty Walking Or Climbing Stairs? No [email or web address] Information not available 03/22/2025 Sex: Unknown Functional Status Question Answer Note LastModified by Organizat ion Details LastModified Time What is your level of alcohol consumption? None [email or web address] Information not available 03/22/2025 Are you currently employed? Yes Occupational [email or web address] Information not available 03/22/2025 Are you able to walk independently without assistance or assistive devices? YESWOREST [email or web address] Information not available 03/22/2025 Are you able to care for yourself independently? Yes [email or web address] Information not available 03/22/2025 Do you have difficulty dressing, bathing, grooming, or toileting? No [email or web address] Information not available 03/22/2025 Mental Status Question Answer Note LastModified by Organization D etails LastModified Time Do you feel stressed (tense, restless, nervous, or anxious, or unable to sleep at night)? PO8196-2 [email or web address] Information not available 03/22/2025 Family History Relationship Description Onset Age of this Age Resolved Age Notes LastModified by Organization Details LastModified Time Mother Diabetes mellitus [email or web address] Not available 2024 10:50:47 Mother Hypercholest erolemia [email or web address] Not available 2024 10:51:02 Mother Hypertensive disorder Not available 2024 10:51:13 Mother Cyst of ovary [email or web address] Not available 2024 09:30:08 Mother Prolapse of female genital organs [email or web address] Not available 2024 09:30:08 Mother Mental disorder Not available 2024 10:53:25 Maternal Grandfather Diabetes mellitus [email or web address] Not available 2024 10:50:47 Father Hypercholest erolemia Not available 2024 10:51:02 Father Hypertensive disorder Not available 2024 10:51:13 Father Mental disorder [email or web address] Not available 2024 10:53:25 Sister Cyst of ovary [email or web address] Not available 2024 09:30:08 Sister Mental disorder [email or web address] Not available 2024 10:53:25 Brother Mental disorder Not available 2024 10:53:25 Medical History Condition Response History of STI Y Anxiety Disorder Y History of abnormal pap Y Depression/ depression Y Gynecological History Statement/Question Response Abnormal Pap Y Flow Moderate Date of LMP 10/09/2024 On BCP's at Conception? N Was last menstrual period normal Y STIs/STDs N HPV Vaccine N Duration of Flow (days) 5 Current Control Method Are cycles usually normal Y Frequency of Cycle (Q days) 28 Sexually Active? Y Menses Monthly Y Age of first menstrual cycle 14 Date of Last Pap Smear 12/13/2024 Sexual Problems? N LMP Definite Obstetrics History GPAL:G 3 P 1 0 1 1 Type Value Full Term 1 Induced 1 Living 1 Total 3 Past Encounters Encounter ID Performer Location Encounter Start Date Encounter Closed Date Diagnosis/Indication Diagnosis SNOMED-CT Code Diagnosis ICD10 Code Diagnosis IMO Codes Diagnosis Note [id number] NIKKI VALENTE MD [place] [address] [address] 05/17/2025 09:29:58 05/17/2025 10:22:42 care status 097066447 Z34.83 [id number] Mika Chopra MD [place] [address] [address] 06/01/2025 15:30:23 06/01/2025 16:26:38 Observational assessment 791178160 Z03.74 Z3A.33 [id number] Mika Chopra MD [place] [address] [address] 06/01/2025 15:34:39 06/02/2025 08:47:34 care status 010432028 Z34.83 [id number] Mika Chopra MD [place] [address] [address] 06/09/2025 11:30:09 06/09/2025 12:41:34 Urinary symptoms 928759376 R39.9 28618 Viral disease 67011278 B 34.9 40111 Health Concerns Section Related Observation LastModified by Organization Detai ls LastModified Time None Recorded Concern Status LastModified by Organization Details LastModified Time None Recorded Payers Encounter Date Sequence Insurance Name Policy Number Policy Combs Covered Member ID Combs Member ID Guarantor Name 06/09/2025 1 [facility] [id number] Madhuri Hung [id number] Madhuri Hung Notes Date Note Type Note Provider Name and Address Organization Details Recorded Time 06/09/2025 text/html OB ProblemReport ed by Patient Mika Chopra MD [address], [place], [address], [place] [facility] 06/09/2025 12:41:33 OBGyn Episode Ob Episode Information Episode Created Date Number of Fetuses Patient Bloodtype Patient rh Status Prepregnancy Weight lbs Domestic Partner Domestic Partner Phone Father Name Griddle Cook Status 03/22/20 25 1 Adrian Dobson OPEN Fetus Data First Name Last Name Admitted to NICU Weight (g) Sex Living Outcome Pediatric Complications Fetus ID Race Codes Race Delivery Type [id number] Mike Calculation Initial Mike Date Initial Exam Date Initial Exam Provider Initial Ultrasound Date Last Menstrual Period Date Ultra Sound Weeks Gestation 03/22/2025 10/09/2024 0 Eighteen To Twenty Week Mike Update Ultra Sound Date Fundal Height At Umbil Quickening Date Ultra Sound Latest Weeks Gestation Final Mike Confirmed By Final Mike Confirmed Date Final Mike Date Ultra Sound Latest Days Gestation 03/22/20 25 22 07/16/19 26 1 Pre- Flowsheet Flowsheet Date 03/22/2025 Wheeler Score Blood Edema Fundus Height Fundus Units Glucose Ketones Leukocytes Nitrite Labor Signs Protein Cervic Dilation Cervic Effacement Cervic Station Type Weight in lbs Pre/Post Dialysis Refused Weight 171.121241755778 BP Diastolic BP Location Tested BP Systolic BP Type 82 L arm 123 sitting Fetus Heart Rate Present A Present Fetus Movement Comments Patient presents today as a transfer of care at 23 weeks. Her was complicated by a recent episode of intractable vomiting and 7lb weight loss. She is now taking zofran PRN and has regained her weight. Hx of uncomplicated in her last . Anatomy US normal at her prior OB. EFW 34% today, repeat in 4 weeks. Discussed GCT and labs for next visit. RTC 4 weeks. Flowsheet Date 04/18/2025 Wheeler Score Blood Edema Fundus Height Fundus Units Glucose Ketones Leukocytes Nitrite Labor Signs Protein Cervic Dilation Cervic Effacement Cervic Station Type Weight in lbs Pre/Post Dialysis Refused Weight 184.304058876241 BP Diastolic BP Location Tested BP Systolic BP Type 85 L arm 129 sitting Fetus Heart Rate Present A 150 Fetus Movement A Yes Comments Doing well, nausea improved off of zofran. No cramping or bleeding. Good movement. GCT and 28 labs today. Discussed tdap and RSV. RTC 2 weeks with growth US. Flowsheet Date 05/02/2025 Wheeler Score Blood Edema Fundus Height Fundus Units Glucose Ketones Leukocytes Nitrite Labor Signs Protein Cervic Dilation Cervic Effacement Cervic Station Type Weight in lbs Pre/Post Dialysis Refused BP Diastolic BP Location Tested BP Systolic BP Type Fetus Heart Rate Present Fetus Movement Comments Flowsheet Date 05/02/2025 Wheeler Score Blood Edema Fundus Height Fundus Units Glucose Ketones Leukocytes Nitrite Labor Signs Protein Cervic Dilation Cervic Effacement Cervic Station Type Weight in lbs Pre/Post Dialysis Refused 190.341047903451 BP Diastolic BP Location Tested BP Systolic BP Type 83 L arm 125 sitting Fetus Heart Rate Present A Present Fetus Movement A Yes Comments Good movement. No cram ping or bleeding. EFW 21%, vertex. Passed GCT and normal 28 week labs. Would like induction at 40 weeks (07/17) if not delivered prior to that. RTC 2 weeks. Flowsheet Date 05/17/2025 Wheeler Score Blood Edema Fundus Height Fundus Units Glucose Ketones Leukocytes Nitrite Labor Signs Protein Cervic Dilation Cervic Effacement Cervic Station Type Weight in lbs Pre/Post Dialysis Refused 204.399331529036 BP Diastolic BP Location Tested BP Systolic BP Type 78 L arm 124 sitting Fetus Heart Rate Present A 130 Fetus Movement A Yes Comments Doing well, good movem ent. Having some increased cramping, discussed belly band. Discussed preadmission for next visit. RTC 2 weeks. Flowsheet Date 06/01/2025 Wheeler Score Blood Edema Fundus Height Fundus Units Glucose Ketones Leukocytes Nitrite Labor Signs Protein Cervic Dilation Cervic Effacement Cervic Station Type Weight in lbs Pre/Post Dialysis Refused BP Diastolic BP Location Tested BP Systolic BP Type Fetus Heart Rate Present Fetus Movement Comments Flowsheet Date 06/01/2025 Wheeler Score Blood Edema Fundus Height Fundus Units Glucose Ketones Leukocytes Nitrite Labor Signs Protein Cervic Dilation Cervic Effacement Cervic Station Type Weight in lbs Pre/Post Dialysis Refused 210.189023947143 BP Diastolic BP Location Tested BP Systolic BP Type 83 L arm 120 sitting Fetus Heart Rate Present Fetus Movement A Yes Comments growth is trending delgado n slowly. To repeat ultrasound in 3 weeks for growth. Flowsheet Date 06/09/2025 Wheeler Score Blood Edema Fundus Height Fundus Units Glucose Ketones Leukocytes Nitrite Labor Signs Protein Cervic Dilation Cervic Effacement Cervic Station Type Weight in lbs Pre/Post Dialysis Refused 203.60162015634 BP Diastolic BP Location Tested BP Systolic BP Type 84 L arm 129 sitting Fetus Heart Rate Present A 138 Present Fetus Movement A Yes Comments Malaise, nausea vomiting, we akness, sent to labor and delivery for fluids, treatment, labs. Menstrual History Last Menstrual Date Menses Monthly On Bcp Conception Prior Menses Frequency Hcg Plus Date Menarche Onset Age 0410/09/2024 Delivery Information Delivery Date Delivery Type Labor Anesthesia Weeks Gestation Incision Type Labor Labor Length Hrs Delivered By Post Complications Tubal Sterilization Discharge Date Comments Discharge Information Feeding Method Contraceptive Method Maternal HG B and HCT Levels
--- OUTSIDE RECORDS SUMMARY | 2025-06-09 11:54 | XMS_ITS | Continuity of Care Document ---
Author Organization [facility] Address [address] [place] [address] [place] [address] Assessment No assessment recorded. Plan of Treatment [...] Not available Not available Not available Lab None recorde d. Referral None recorde d. Procedures None recorde d. Surgeries None recorde d. Imaging US, obstetr ic, follow- up 2024 025 [email or web address] Ava, [address], [address], [place], [address], 05/02/2025 18:28:38 Medication Orders None recorde d. Patient TargetsNo targets recorded. Patient InstructionsNo instructions recorded. Reason for Referral None Reported. Results Created Date Observation Date Name Description Value Unit Range Abnormal Flag Note LastModifiedBy Organization Detail LastModifiedTime 03/22/2003/22/2025 CT/GC AND TRICH OMONA S VAGIN JOSSIE (RRNA ), URINE chlamydia trachomatis, PCR Negati ve negati ve Not Available [facility] (Lab) [address], [place], [address], 03/25/2025 06:40:53 03/22/2003/22/2025 CT/GC AND TRICH OMONA S VAGIN JOSSIE (RRNA ), URINE neisseria gonorrhoeae, PCR Negati ve negati ve Not Available [facility] (Lab) [address], [place], [address], 03/25/2025 06:40:53 03/22/2003/22/2025 CT/GC AND TRICH OMONA S VAGIN JOSSIE (RRNA ), URINE trichomonas vaginalis ribosomal RNA (rrna) Negati ve negati ve 49_CL _SOUR CETVG : Urine - Bladd er Not Available [facility] (Lab) [address], [place], [address], 03/25/2025 06:40:53 03/22/2003/22/2025 CULTU RE: URINE result report SEE RESULT S BELOW abnormal Test: Cultu re: Urine Speci men Sourc e: Urine - Clean Catch Speci men Type: Urine Speci men Date: 2024 1041 Resul t Date: 03/25 0537 Resul t Statu s: Final resul t Abnor mal: Yes Resul ting Lab: [facility] [address] [facility] [address] Tel: CULTU RE ----- ----- ----- --- >100, [...] ms and tetra cycli ne. Not Available [facility] (Lab) [address], [place], [address], 03/25/2025 06:40:54 04/18/2004/18/2025 HEMOG LOBIN (HGB) HGB 12.7 g/dL (based on docume nted legal sex) 11.6-1 5.4 Not Available [facility] (Lab) [address], [place], [address], 04/19/2025 12:39:16 04/18/20 25 04/18/2025 HEMAT OCRIT (HCT) HCT 39.5 % (based on docume nted legal sex) 34.0-4 5.0 Not Available [facility] (Lab) [address], [place], [address], 04/19/2025 12:39:16 04/18/20 25 04/18/2025 GTT - GESTA MELIDA Awais Rojas, ACOG OB glucose, 1 hour screen 97 mg/dL 70-135 Not Available [facility] (Lab) [address], [place], [address], 04/19/2025 12:39:16 04/18/20 25 04/18/2025 HIV 1/2 ANTIG EN/AN TIBOD Y, REFLE X CONFI RMATI ON HIV antigen/anti body Nonrea ctive nonrea ctive HIV-1 antig en and HIV-1 /HIV- 2 antib odies were not detec sherlyn. No labor atory evide nce of HIV infec tion. Not Available [facility] (Lab) [address], [place], [address], 04/19/2025 12:39:17 04/18/20 25 04/18/2025 RPR SCREE N, REFLE X TITER /CONF IRMAT ION RPR qualitative Nonrea ctive nonrea ctive Not Available [facility] (Lab) [address] [place], [address], 04/19/2025 12:39:17 03/22/20 25 03/22/2025 US, obste tric, follo w-up No observ ation record ed. [email or web address] [facility] [address], [place], [address], 03/22/2025 15:08:09 03/22/20 25 03/22/2025 US, obste tric, follo w-up No observ ation record ed. [email or web address] Ruthann [address], [place], [address], 03/24/2025 01:45:55 05/02/20 25 05/03/2025 US, obste tric, follo w-up No observ ation record ed. [facility] [address], [place], [address], 05/03/2025 13:29:24 05/02/20 25 05/02/2025 US, obste tric, follo w-up No observ ation record ed. RAJIV Ruthann [address], [place], [address], 05/05/2025 17:50:17 06/01/20 25 06/01/2025 US, obste tric, follo w-up No observ ation record ed. [facility] [address], [place], [address], 06/01/2025 17:30:03 06/01/20 25 06/01/2025 US, obste tric, follo w-up No observ ation record ed. [email or web address] Ruthann [address], [place], [address], 06/05/2025 11:37:37 Result Notes None recorded. Problems Name Problem SNOMED Code Status Onset Date Resolution Date Notes Provider Name and Address Organization Details Recorded Time 83129383 Active 025 Courtney mandujano [facility] 5 10:46:32 Problem Notes None recorded. Procedures Surgical History Date Name Laterality Status Provider Name and Address Organization Details Recorded Time Date of Last Pap Smear completed Courtney Wynne [facility] 03/22/2025 10:40:36 0 [facility]2025 10:46:06 2 Breast Implants completed Courtney [facility] 03/22/2025 10:45:46 Imaging Results None recorded. Procedure Notes None recorded. Medical Equipment None Reported. Allergies Allergen ID Allergen Name Allergen Category Reaction Reaction Severity Criticality Documentation Date Start Date Code Code System Note Provider Name and Address Organization Details Recorded Time 96576 nitrofura ntoin medicatio n Not available Not available Not available 03/22/2025 7454 RxNorm Courtney Wynne [facility] 5 10:22:37 19630 Macrobid medicatio n nausea vomiting Not available Not available Not available 05/02/20252019 08831 1 RxNorm Not Available [employer] - prod 03:19:41 71971 nitrofura ntoin, macrocrys tals / nitrofura ntoin, monohydra te medicatio n vomiting Not available low 05/02/20252019 72833 2 RxNorm Not Available [employer] - prod 03:19:44 Medications Name Sig Start Date Stop [...] Not Available Vitals Date Recorded Body weight Body mass index (BMI) Body height Systolic And Diastolic Provider Name and Address Organization Details Last Updated DateTime 05/02/2025 21688.550 3 g 30.2 kg/m2 168.91 cm 125/83 mm[Hg] Courtney Wynne [facility] 05/02/2025 16:52:18 Social History Question Answer Notes LastModified by Organizat ion Details LastModified Time Tobacco Smoking Status Never Smoker Courtney mandujano [facility] 03/22/2025 10:43:09 Are You Blind Or Do You Have Difficulty Seeing? Yes Glasses [email or web address] Information not available 03/22/2025 What Is Your Level Of Caffeine Consumption? Moderate [email or web address] Information not available 03/22/2025 In The 14 Days Before Symptom Onset, Have You Had Close Contact With A Laboratory-confir med COVID-19 While That Case Was Ill? No [email or web address] Information not available 03/22/2025 In The 14 Days Before Symptom Onset, Have You Had Close Contact With A Person Who Is Under Investigation For COVID-19 While That Person Was Ill? No Information not available 03/22/2025 Have You Been To An Area Known To Be High Risk For COVID-19? No [email or web address] Information not available 03/22/2025 Are You Deaf Or Do You Have Serious Difficulty Hearing? Yes [email or web address] Information not available 03/22/2025 What Type Of Diet Are You Following? REGULAR [email or web address] Information not available 03/22/2025 What Is The Highest Grade Or Level Of School You Have Completed Or The Highest Degree You Have Received? [id number] [email or web address] Information not available 03/22/2025 Are There Any Guns Present In Your Home? No [email or web address] Information not available 03/22/2025 Do You Use Protection During Sex? No [email or web address] Information not available 03/22/2025 Do You Use Your Seat Belt Or Car Seat Routinely? Yes [email or web address] Information not available 03/22/2025 Are You Sexually Active? Yes [email or web address] Information not available 03/22/2025 Do You Have Smoke And Carbon Monoxide Detectors In Your Home? Yes [email or web address] Information not available 03/22/2025 Do You Use Sunscreen Routinely? No [email or web address] Information not available 03/22/2025 Do You Have Difficulty Walking Or Climbing Stairs? No [email or web address] Information not available 03/22/2025 Sex: Unknown Functional Status Question Answer Note LastModified by Organizat ion Details LastModified Time What is your level of alcohol consumption? None [email or web address] Information not available 03/22/2025 Are you currently employed? Yes Occupational [employer] [email or web address] Information not available 03/22/2025 Are you able to walk independently without assistance or assistive devices? YESWOREST [email or web address] Information not available 03/22/2025 Are you able to care for yourself independently? Yes [email or web address] Information not available 03/22/2025 Do you have difficulty dressing, bathing, grooming, or toileting? No [email or web address] Information not available 03/22/2025 Mental Status Question Answer Note LastModified by Organization D etails LastModified Time Do you feel stressed (tense, restless, nervous, or anxious, or unable to sleep at night)? [id number] Information not available 03/22/2025 Family History Relationship Description Onset Age of this Age Resolved Age Notes LastModified by Organization Details LastModified Time Mother Diabetes mellitus [email or web address] Not available 2024 10:50:47 Mother Hypercholest erolemia [email or web address] Not available 2024 10:51:02 Mother Hypertensive disorder [email or web address] Not available 2024 10:51:13 Mother Cyst of ovary [email or web address] Not available 2024 09:30:08 Mother Prolapse of female genital organs [email or web address] Not available 2024 09:30:08 Mother Mental disorder [email or web address] Not available 2024 10:53:25 Maternal Grandfather Diabetes mellitus [email or web address] Not available 2024 10:50:47 Father Hypercholest erolemia Not available 2024 10:51:02 Father Hypertensive disorder [email or web address] Not available 2024 10:51:13 Father Mental disorder [email or web address] Not available 2024 10:53:25 Sister Cyst of ovary [email or web address] Not available 2024 09:30:08 Sister Mental disorder Not available 2024 10:53:25 Brother Mental disorder Not available 2024 10:53:25 Medical History Condition Response Anxiety Disorder Y History of STI Y History of abnormal pap Y Depression/ [...] ICD10 Code Diagnosis IMO Codes Diagnosis Note [id number] NIKKI VALENTE MD [facility] [address],[place] [address] 04/18/2025 09:02:55 04/18/2025 10:21:49 care status 967730803 Z34.83 [id number] NIKKI VALENTE MD [facility] [address],[place] [address] 05/02/2025 15:39:01 05/02/2025 16:54:42 Observational assessment 320121467 Z03.74 Z3A.29 [id number] NIKKI VALENTE MD [facility] [address],[place] [address] 05/02/2025 15:39:57 05/02/2025 17:08:25 care status [id number] Z34.83 [id number] Health Concerns Section Related Observation LastModified by Organization Detai ls LastModified Time None Recorded Concern Status LastModified by Organization Details LastModified Time None Recorded Payers Encounter Date Sequence Insurance Name Policy Number Policy Combs Covered Member ID Combs Member ID Guarantor Name 05/02/2025 1 [facility] [id number] Addison Page Hung [id number] Madhuri [place] Notes Date Note Type Note Provider Name and Address Organization Details Recorded Time 05/02/2025 text/html Generic HPI TemplateReported by Patient NIKKI VALENTE MD [address], [place], [address], [facility] 05/02/2025 17:06:21 OBGyn Episode Ob Episode Information Episode Created Date Number of Fetuses Patient Bloodtype Patient rh Status Prepregnancy Weight lbs Domestic Partner Domestic Partner Phone Father Name Member Services Representative Status 03/22/20 25 1 Adrian Dobson OPEN Fetus Data First Name Last Name Admitted to NICU Weight (g) Sex Living Outcome Pediatric Complications Fetus ID Race Codes Race Delivery Type [id number] Mike Calculation Initial Mike Date Initial Exam [...] Gestation 03/22/20 25 22 07/16/19 26 1 Pre-dez Flowsheet Flowsheet Date 03/22/2025 Wheeler Score Blood Edema Fundus Height Fundus Units Glucose Ketones Leukocytes Nitrite Labor Signs Protein Cervic Dilation Cervic Effacement Cervic Station Type Weight in lbs Pre/Post Dialysis Refused Weight 171.332299938013 BP Diastolic BP Location Tested BP Systolic [...] Weight in lbs Pre/Post Dialysis Refused Weight 184.451291404596 BP Diastolic BP Location Tested BP Systolic [...] Type Weight in lbs Pre/Post Dialysis Refused 190.635190290175 BP Diastolic BP Location Tested BP Systolic BP Type 83 L arm 125 sitting Fetus Heart Rate Present A Present Fetus Movement A Yes Comments Good movement. No cram ping or bleeding. EFW 21%, vertex. Passed GCT and normal 28 week labs. Would like induction at 40 weeks (2/2) if not delivered prior to that. RTC 2 weeks. Flowsheet Date 05/17/2025 Wheeler Score Blood Edema Fundus Height Fundus Units Glucose Ketones Leukocytes Nitrite Labor Signs Protein Cervic Dilation Cervic Effacement Cervic Station Type Weight in lbs Pre/Post Dialysis Refused 204.081806605857 BP Diastolic BP Location Tested BP Systolic [...] Type Weight in lbs Pre/Post Dialysis Refused 210.461494275117 BP Diastolic BP Location Tested BP Systolic [...] Type Weight in lbs Pre/Post Dialysis Refused 203.37385894237 BP Diastolic BP Location Tested BP Systolic [...]
--- OUTSIDE RECORDS SUMMARY | 2025-06-09 11:54 | XMS_ITS | Data Portability ---
Author Organization [facility] Address [address] [place] [place] [address] [place] [address] Assessment Encounter Date Assessment Date Assessment LastModified by Organization Details LastModified Time 06/01/2025 06/01/2025 Patient is ___weeks . Discussed plan. [email or web address] Not available 06/01/2025 17:24:17 Plan of Treatment Reminders Order Date Submit Date Provider Last Modified By Organization Details Last Modified Time Details Appointments OB PROBLEM 2024 10:30A Bety SIEGEL MD Not available Not available Not available OB ROUTINE 2025 08:45A Bety SIEGEL MD Not available Not available Not available U/S OB GROWTH 2025 03:00P M ULTRASOUND Not available Not available Not available OB ROUTINE 2025 03:45P M NIKKI VALENTE MD Not available Not available Not available Lab urinaly sis, dipstic k 2024 025 [email or web address] [place], [address], [place], [address], 06/09/2025 12:06:56 culture , urine 2024 025 [facility] (Lab), [address], [place], [address], 06/09/2025 12:07:27 Referral None recorde d. Procedures None recorde d. Surgeries None recorde d. Imaging US, obstetr ic, follow- up 2024 025 [email or web address] [address], [address], [place], [address], 06/02/2025 00:04:28 US, [facility] ic, follow- up 2024 025 [email or web address] [address], [address], [place], [address], 05/02/2025 18:28:38 Medication Orders Macrobi d 100 mg capsule 2024 025 [id number], [address], [place], [id number], 06/09/2025 12:34:27 Patient TargetsNo targets recorded. Patient InstructionsNo instructions recorded. Reason for Referral None Reported. Results Created Date Observation Date Name Description Value Unit Range Abnormal Flag Note LastModifiedBy Organization Detail LastModifiedTime 04/18/2004/18/2025 HEMOG LOBIN (HGB) HGB 12.7 g/dL (based on docume nted legal sex) 11.6-1 5.4 Not Available [facility] (Lab) [address], [place], [address], 04/19/2025 12:39:16 04/18/20 25 04/18/2025 HEMAT OCRIT (HCT) HCT 39.5 % (based on docume nted legal sex) 34.0-4 5.0 Not Available [facility] (Lab) [address], [place], [address], 04/19/2025 12:39:16 04/18/20 25 04/18/2025 GTT - GESTA MELIDA Awais Rojas, ACOG OB glucose, 1 hour screen 97 mg/dL 70-135 Not Available [facility] (Lab) [address] [place], [address], 04/19/2025 12:39:16 04/18/20 25 04/18/2025 HIV 1/2 ANTIG EN/AN TIBOD Y, REFLE X CONFI RMATI ON HIV antigen/anti body Nonrea ctive nonrea ctive HIV-1 antig en and HIV-1 /HIV- 2 antib odies were not detec sherlyn. No labor atory evide nce of HIV infec tion. Not Available [facility] (Lab) [address], [place], [address], 04/19/2025 12:39:17 04/18/20 25 04/18/2025 RPR SCREE N, REFLE X TITER /CONF IRMAT ION RPR qualitative Nonrea ctive nonrea ctive Not Available [facility] (Lab) [address], [place], [address], 04/19/2025 12:39:17 05/02/20 25 05/03/2025 US, obste tric, follo w-up No observ ation record ed. [facility] [address], [place], [address], 05/03/2025 13:29:24 05/02/20 25 05/02/2025 US, obste tric, follo w-up No observ ation record ed. RAJIV Beavers [address], [place], [address], 05/05/2025 17:50:17 06/01/20 25 06/01/2025 US, obste tric, follo w-up No observ ation record ed. [facility] [address], [place], [address], 06/01/2025 17:30:03 06/01/20 25 06/01/2025 US, obste tric, follo w-up No observ ation record ed. yany Ruthann [address], [place], [address], 06/05/2025 11:37:37 Result Notes None recorded. Problems Name Problem SNOMED Code Status Onset Date Resolution Date Notes Provider Name and Address Organization Details Recorded Time 20944233 Active 025 Courtney Sanford [facility] 5 10:46:32 Problem Notes None recorded. Procedures Surgical History Date Name Laterality Status Provider Name and Address Organization Details Recorded Time 5 Date of Last Pap Smear completed [facility] 03/22/2025 10:40:36 0 removal of breast implant completed [facility] 03/22/2025 10:46:06 2 Breast Implants completed [facility] 03/22/2025 10:45:46 Imaging Results None recorded. Procedure Notes None recorded. Medical Equipment None Reported. Allergies Allergen ID Allergen Name Allergen Category Reaction Reaction Severity Criticality Documentation Date Start Date Code Code System Note Provider Name and Address Organization Details Recorded Time 25990 nitrofura ntoin medicatio n Not available Not available Not available 03/22/2025 7454 RxNorm Courtney Sanford [facility] 5 10:22:37 99345 Macrobid medicatio n nausea vomiting Not available Not available Not available 05/02/20252019 33632 1 RxNorm Not Available [employer] - prod 03:19:41 64915 nitrofura ntoin, macrocrys tals / nitrofura ntoin, monohydra te medicatio n vomiting Not available low 05/02/20252019 09495 2 RxNorm Not Available [employer] - prod 03:19:44 Medications Name [...] Address Organization Details Last Updated DateTime 05/02/2025 02912.550 3 g 30.2 kg/m2 168.91 cm 125/83 mm[Hg] Courtney Wynne [facility] 05/02/2025 16:52:18 Date Recorded Body weight Body mass index (BMI) Body height Systolic And Diastolic Provider Name and Address Organization Details Last Updated DateTime 05/17/2025 63006.843 48 g 32.4 kg/m2 168.91 cm 124/78 mm[Hg] Courtneykirk Sanchezrenetta [facility] 05/17/2025 10:02:00 Date Recorded Body weight Systolic And Diastolic Provider Name and Address Organization Details Last Updated DateTime 06/01/2025 37214.3977 g 120/83 mm[Hg] Keyanna Tee [facility] 06/01/2025 17:25:07 Date Recorded Body weight Systolic And Diastolic Provider Name and Address Organization Details Last Updated DateTime 06/09/2025 99818.87134 g 129/84 mm[Hg] Keyanna Tee [facility] 06/09/2025 12:04:56 Social History Question Answer Notes LastModified by Organizat ion Details LastModified Time Tobacco Smoking Status Never Smoker [facility]irk [facility] 03/22/2025 10:43:09 Are You Blind Or Do You Have Difficulty Seeing? Yes Glasses [email or web address] Information not available 03/22/2025 What Is Your Level Of Caffeine Consumption? Moderate [email or web address] Information not available 03/22/2025 In The 14 Days Before Symptom Onset, Have You Had Close Contact With A Laboratory-confir med COVID-19 While That Case Was Ill? No [email or web address] Information not available 03/22/2025 In The 14 Days Before Symptom Onset, Have You Had Close Contact With A Person Who Is Under Investigation For COVID-19 While That Person Was Ill? No [email or web address] Information not available 03/22/2025 Have You Been To An Area Known To Be High Risk For COVID-19? No [email or web address] Information not available 03/22/2025 Are You Deaf Or Do You Have Serious Difficulty Hearing? Yes Information not available 03/22/2025 What Type Of Diet Are You Following? REGULAR Information not available 03/22/2025 What Is The Highest Grade Or Level Of School You Have Completed Or The Highest Degree You Have Received? [id number] [email or web address] Information not available 03/22/2025 Are There Any Guns Present In Your Home? No [email or web address] Information not available 03/22/2025 Do You Use Protection During Sex? No [email or web address] Information not available 03/22/2025 Do You Use Your Seat Belt Or Car Seat Routinely? Yes [email or web address] Information not available 03/22/2025 Are You Sexually Active? Yes [email or web address] Information not available 03/22/2025 Do You Have Smoke And Carbon Monoxide Detectors In Your Home? Yes [email or web address] Information not available 03/22/2025 Do You Use Sunscreen Routinely? No [email or web address] Information not available 03/22/2025 Do You Have Difficulty Walking Or Climbing Stairs? No [email or web address] Information not available 03/22/2025 Sex: Unknown Functional Status Question Answer Note LastModified by Organizat ion Details LastModified Time What is your level of alcohol consumption? 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 [email or web address] Information not available 03/22/2025 Are you able to care for yourself independently? Yes Information not available 03/22/2025 Do you have difficulty dressing, bathing, grooming, or toileting? No Information not available 03/22/2025 Mental Status Question Answer Note LastModified by Organization D etails LastModified Time Do you feel stressed (tense, restless, nervous, or anxious, or unable to sleep at night)? [id number] [email or web address] Information not available 03/22/2025 Family History Relationship Description Onset Age of this Age Resolved Age Notes LastModified by Organization Details LastModified Time Mother Diabetes mellitus Not available 2024 10:50:47 Mother Hypercholest erolemia [email or web address] Not available 2024 10:51:02 Mother Hypertensive disorder [email or web address] Not available 2024 10:51:13 Mother Cyst of ovary [email or web address] Not available 2024 09:30:08 Mother Prolapse of female genital organs [email or web address] Not available 2024 09:30:08 Mother Mental disorder Not available 2024 10:53:25 Maternal Grandfather Diabetes mellitus [email or web address] Not available 2024 10:50:47 Father Hypercholest erolemia Not available 2024 10:51:02 Father Hypertensive disorder [email or web address] Not available 2024 10:51:13 Father Mental disorder [email or web address] Not available 2024 10:53:25 Sister Cyst of ovary [email or web address] Not available 2024 09:30:08 Sister Mental disorder [email or web address] Not available 2024 10:53:25 Brother Mental disorder [email or web address] Not available 2024 10:53:25 Medical History Condition [...] ICD10 Code Diagnosis IMO Codes Diagnosis Note [id number] NIKKI VALENTE MD [place] [address],[place] [address] 03/22/2025 09:28:57 03/22/2025 10:36:37 Observational assessment 152378417 Z03.74 Z3A.22 4504432 [id number] NIKKI VALENTE MD [place] [address] [place] [address] 03/22/2025 09:45:08 03/22/2025 16:11:11 state of fetus 90444898 Z34.90 [id number] MD [place] [address] [address] 04/18/2025 09:02:55 04/18/2025 10:21:49 care status 294717423 Z34.83 [id number] MD Gilda GRANADOS [address] [address] 05/02/2025 15:39:01 05/02/2025 16:54:42 Observational assessment 036187036 Z03.74 Z3A.29 4689836 [id number] MD Gilda GRANADOS [address] [address] 05/02/2025 15:39:57 05/02/2025 17:08:25 care status 019294720 Z34.83 48416050 [id number] MD Gilda GRANAD[place] [address] [address] 05/17/2025 09:29:58 05/17/2025 10:22:42 care status 294454471 Z34.83 03834905 [id number] MD Gilda Olsen [address] [address] 06/01/2025 15:30:23 06/01/2025 16:26:38 Observational assessment 120283654 Z03.74 Z3A.33 [id number] [id number] MD Gilda Olsen [address] [address] 06/01/2025 15:34:39 06/02/2025 08:47:34 care status 711881319 Z34.83 78143672 [id number] MD Gilda Olsen [address] [address] 06/09/2025 11:30:09 06/09/2025 12:41:34 Urinary symptoms 285212320 R39.9 78114 Viral disease 94765257 B 34.9 12386 Health Concerns Section Related Observation LastModified by Organization Detai ls LastModified Time None Recorded Concern Status LastModified by Organization Details LastModified Time None Recorded Advance Directives Directive None Recorded Payers Insurance Date Sequence Insurance Name Policy Number Policy Combs Covered Member ID Combs Member ID Guarantor Name 06/05/2025 1 [facility] [id number] Madhuri Hung [id number] Madhuri Hung Notes Date Note Type Note Provider Name and Address Organization Details Recorded Time 05/02/2025 text/html Generic HPI TemplateReported by Patient NIKKI VALENTE MD [address], [place], [address], [facility] 05/02/2025 17:06:21 05/17/2025 text/html Generic HPI TemplateReported by Patient NIKKI VALENTE MD [address], [place], [address], [facility] 05/17/2025 10:15:11 06/01/2025 text/html Generic HPI TemplateReported by Patient Mika Siegel MD [address], [place], [address], [facility] 06/01/2025 18:12:52 06/09/2025 text/html OB ProblemReport ed by Patient Mika Siegel MD [address], [place], [address], [facility] 06/09/2025 12:41:33 OBGyn Episode Ob Episode Information Episode Created Date Number of Fetuses Patient Bloodtype Patient rh Status Prepregnancy Weight lbs Domestic Partner Domestic Partner Phone Father Name International Project Manager Status 03/22/20 25 1 CLOSED Fetus Data First Name Last Name Admitted to NICU Weight (g) Sex Living Outcome Pediatric Complications Fetus ID Race Codes Race Delivery Type , Induced [id number] Mike Calculation Initial Mike Date Initial Exam Date Initial Exam Provider Initial Ultrasound Date Last Menstrual Period Date Ultra Sound Weeks Gestation 0 Eighteen To Twenty Week Mike Update Ultra Sound Date Fundal Height At Umbil Quickening Date Ultra Sound Latest Weeks Gestation Final Mike Confirmed By Final Mike Confirmed Date Final Mike Date Ultra Sound Latest Days Gestation 0 0 Menstrual History Last Menstrual Date Menses Monthly On Bcp Conception Prior Menses Frequency Hcg Plus Date Menarche Onset Age Delivery Information Delivery Date Delivery Type Labor Anesthesia Weeks Gestation Incision Type Labor Labor Length Hrs Delivered By Post Complications Tubal Sterilization Discharge Date Comments Discharge Information Feeding Method Contraceptive Method Maternal HG B and HCT Levels Ob Episode Information Episode Created Date Number of Fetuses Patient Bloodtype Patient rh Status Prepregnancy Weight lbs Domestic Partner Domestic Partner Phone Father Name International Project Manager Status 03/22/20 25 1 Adrian Dobson OPEN Fetus Data First Name Last Name Admitted to NICU Weight (g) Sex Living Outcome Pediatric Complications Fetus ID Race Codes Race Delivery Type [id number] Mike Calculation Initial Mike Date Initial Exam [...] Weight in lbs Pre/Post Dialysis Refused Weight 171.775331729179 BP Diastolic BP Location Tested BP Systolic [...] Weight in lbs Pre/Post Dialysis Refused Weight 184.465493164933 BP Diastolic BP Location Tested BP Systolic [...] Type Weight in lbs Pre/Post Dialysis Refused 190.110279961437 BP Diastolic BP Location Tested BP Systolic BP Type 83 L arm 125 sitting Fetus Heart Rate Present A Present Fetus Movement A Yes Comments Good movement. No cram ping or bleeding. EFW 21%, vertex. Passed GCT and normal 28 week labs. Would like induction at 40 weeks (2/) if not delivered prior to that. RTC 2 weeks. Flowsheet Date 05/17/2025 Wheeler Score Blood Edema Fundus Height Fundus Units Glucose Ketones Leukocytes Nitrite Labor Signs Protein Cervic Dilation Cervic Effacement Cervic Station Type Weight in lbs Pre/Post Dialysis Refused 204.521082929883 BP Diastolic BP Location Tested BP Systolic [...] Type Weight in lbs Pre/Post Dialysis Refused 210.560186903926 BP Diastolic BP Location Tested BP Systolic [...] Type Weight in lbs Pre/Post Dialysis Refused 203.91549710925 BP Diastolic BP Location Tested BP Systolic [...] Method Maternal HG B and HCT Levels Ob Episode Information Episode Created Date Number of Fetuses Patient Bloodtype Patient rh Status Prepregnancy Weight lbs Domestic Partner Domestic Partner Phone Father Name International Project Manager Status 03/22/20 25 1 CLOSED Fetus Data First Name Last Name Admitted to NICU Weight (g) Sex Living Outcome Pediatric Complications Fetus ID Race Codes Race Delivery Type M Full Term [id number] Vaginal Delivery Mike Calculation Initial Mike Date Initial Exam Date Initial Exam Provider Initial Ultrasound Date Last Menstrual Period Date Ultra Sound Weeks Gestation 0 Eighteen To Twenty Week Mike Update Ultra Sound Date Fundal Height At Umbil Quickening Date Ultra Sound Latest Weeks Gestation Final Mike Confirmed By Final Mike Confirmed Date Final Mike Date Ultra Sound Latest Days Gestation 0 0 Menstrual History Last Menstrual Date Menses Monthly On Bcp Conception Prior Menses Frequency Hcg Plus Date Menarche Onset Age Delivery Information Delivery Date Delivery Type Labor Anesthesia Weeks Gestation Incision Type Labor Labor Length Hrs Delivered By Post Complications Tubal Sterilization Discharge Date Comments 5 Discharge Information Feeding Method Contraceptive Method Maternal HG B and HCT Levels
--- OUTSIDE RECORDS SUMMARY | 2025-06-09 11:54 | XMS_ITS | Continuity of Care Document ---
Author Organization [facility] Address [address] [address] [place] [address] Assessment No assessment recorded. Plan of Treatment [...] obstetr ic, follow- up 2024 025 [email or web address] [address], [address], [place], [address], 06/02/2025 00:04:28 Medication Orders None recorde d. Patient TargetsNo targets recorded. Patient InstructionsNo instructions recorded. Reason for Referral None Reported. Results Created Date Observation Date Name Description Value Unit Range Abnormal Flag Note LastModifiedBy Organization Detail LastModifiedTime 03/22/2003/22/2025 CT/GC AND TRICH OMONA S VAGIN JOSSIE (RRNA ), URINE chlamydia trachomatis, PCR Negati ve negati ve Not Available [facility] (Lab) [address], [place], [address], 03/25/2025 06:40:53 03/22/2003/22/2025 CT/GC AND TRICH OMONA S VAGIN JOSSIE (RRNA ), URINE neisseria gonorrhoeae, PCR Negati ve negati ve Not Available [facility] (Lab) [address], [place], [address], 03/25/2025 06:40:53 03/22/2003/22/2025 CT/GC AND TRICH OMONA S VAGIN JOSSIE (RRNA ), URINE trichomonas vaginalis ribosomal RNA (rrna) Negati ve negati ve 49_CL _SOUR CETVG : Urine - Bladd er Not Available [facility] (Lab) [address], [place], [address], 03/25/2025 06:40:53 03/22/2003/22/2025 CULTU RE: URINE result report SEE RESULT S BELOW abnormal Test: Cultu re: Urine Speci men Sourc e: Urine - Clean Catch Speci men Type: Urine Speci men Date: 2024 1041 Resul t Date: 03/25 0537 Resul t Statu s: Final resul t Abnor mal: Yes Resul ting Lab: [facility] [address] [address] Tel: CULTU RE ----- ----- ----- --- [...] ms and tetra cycli ne. Not Available [facility] (Lab) [address], [place], [address], 03/25/2025 06:40:54 04/18/2004/18/2025 HEMOG LOBIN (HGB) HGB 12.7 g/dL (based on docume nted legal sex) 11.6-1 5.4 Not Available [facility] (Lab) [address], [place], [address], 04/19/2025 12:39:16 04/18/20 25 04/18/2025 HEMAT OCRIT (HCT) HCT 39.5 % (based on docume nted legal sex) 34.0-4 5.0 Not Available [facility] (Lab) [address], [place], [address], 04/19/2025 12:39:16 04/18/20 25 04/18/2025 GTT - GESTA MELIDA Awais Rojas, ACOG OB glucose, 1 hour screen 97 mg/dL 70-135 Not Available [facility] (Lab) [address], [place], [address], 04/19/2025 12:39:16 04/18/20 25 04/18/2025 HIV 1/2 ANTIG EN/AN TIBOD Y, REFLE X CONFI RMATI ON HIV antigen/anti body Nonrea ctive nonrea ctive HIV-1 antig en and HIV-1 /HIV- 2 antib odies were not detec sherlyn. No labor atory evide nce of HIV infec tion. Not Available [facility] (Lab) [address], [place], [address], 04/19/2025 12:39:17 04/18/20 25 04/18/2025 RPR SCREE N, REFLE X TITER /CONF IRMAT ION RPR qualitative Nonrea ctive nonrea ctive Not Available [facility] (Lab) [address] [place], [address], 04/19/2025 12:39:17 03/22/20 25 03/22/2025 US, obste tric, follo w-up No observ ation record ed. [email or web address] [place] [address], [place], [address], 03/22/2025 15:08:09 03/22/20 25 03/22/2025 US, obste tric, follo w-up No observ ation record ed. [email or web address] [address], [place], [address], 03/24/2025 01:45:55 05/02/20 25 05/03/2025 US, obste tric, follo w-up No observ ation record ed. [facility] [address], [place], [address], 05/03/2025 13:29:24 05/02/20 25 05/02/2025 US, obste tric, follo w-up No observ ation record ed. RAJIV [address], [place], [address], 05/05/2025 17:50:17 06/01/20 25 06/01/2025 US, obste tric, follo w-up No observ ation record ed. [facility] [address], [place], [address], 06/01/2025 17:30:03 06/01/20 25 06/01/2025 US, obste tric, follo w-up No observ ation record ed. [email or web address] Ruth[address], [place], [address], 06/05/2025 11:37:37 Result Notes None recorded. Problems Name Problem SNOMED Code Status Onset Date Resolution Date Notes Provider Name and Address Organization Details Recorded Time 35262462 Active 025 Courtney mandujano [facility] 5 10:46:32 Problem Notes None recorded. Procedures Surgical History Date Name Laterality Status Provider Name and Address Organization Details Recorded Time Date of Last Pap Smear completed Courtney Wynne [facility] 03/22/2025 10:40:36 0 [facility]25 10:46:06 2 Breast Implants completed Courtney [facility] 03/22/2025 10:45:46 Imaging Results None recorded. Procedure Notes None recorded. Medical Equipment None Reported. Allergies Allergen ID Allergen Name Allergen Category Reaction Reaction Severity Criticality Documentation Date Start Date Code Code System Note Provider Name and Address Organization Details Recorded Time 73425 nitrofura ntoin medicatio n Not available Not available Not available 03/22/2025 7454 RxNorm Courtney Wynne [facility] 5 10:22:37 21183 Macrobid medicatio n nausea vomiting Not available Not available Not available 05/02/20252019 64489 1 RxNorm Not Available [employer] - prod 03:19:41 56591 nitrofura ntoin, macrocrys tals / nitrofura ntoin, monohydra te medicatio n vomiting Not available low 05/02/20252019 21679 2 RxNorm Not Available [employer] - prod 03:19:44 Medications Name [...] Address Organization Details Last Updated DateTime 06/01/2025 01904.3977 g 120/83 mm[Hg] Keyanna Tee [facility] 06/01/2025 17:25:07 Social History Question Answer Notes LastModified by Organizat ion Details LastModified Time Tobacco Smoking Status Never Smoker Courtney mandujano [facility] 03/22/2025 10:43:09 Are You Blind Or Do You Have Difficulty Seeing? Yes Glasses [email or web address] Information not available 03/22/2025 What Is Your Level Of Caffeine Consumption? Moderate [email or web address] Information not available 03/22/2025 In The 14 Days Before Symptom Onset, Have You Had Close Contact With A Laboratory-confir med COVID-19 While That Case Was Ill? No [email or web address] Information not available 03/22/2025 In The 14 Days Before Symptom Onset, Have You Had Close Contact With A Person Who Is Under Investigation For COVID-19 While That Person Was Ill? No [email or web address] Information not available 03/22/2025 Have You Been To An Area Known To Be High Risk For COVID-19? No [email or web address] Information not available 03/22/2025 Are You Deaf Or Do You Have Serious Difficulty Hearing? Yes [email or web address] Information not available 03/22/2025 What Type Of Diet Are You Following? REGULAR [email or web address] Information not available 03/22/2025 What Is The Highest Grade Or Level Of School You Have Completed Or The Highest Degree You Have Received? BM00466-3 [email or web address] Information not available 03/22/2025 Are There Any Guns Present In Your Home? No Information not available 03/22/2025 Do You Use Protection During Sex? No [email or web address] Information not available 03/22/2025 Do You Use Your Seat Belt Or Car Seat Routinely? Yes Information not available 03/22/2025 Are You Sexually Active? Yes [email or web address] Information not available 03/22/2025 Do You Have Smoke And Carbon Monoxide Detectors In Your Home? Yes Information not available 03/22/2025 Do You Use Sunscreen Routinely? No [email or web address] Information not available 03/22/2025 Do You Have Difficulty Walking Or Climbing Stairs? No [email or web address] Information not available 03/22/2025 Sex: Unknown Functional Status Question Answer Note LastModified by Organizat ion Details LastModified Time What is your level of alcohol consumption? None Information not available 03/22/2025 Are you currently employed? Yes Occupational [employer]ar[employer] [email or web address] Information not available 03/22/2025 Are you able to walk independently without assistance or assistive devices? YESWOREST [email or web address] Information not available 03/22/2025 Are you able to care for yourself independently? Yes [email or web address] Information not available 03/22/2025 Do you have difficulty dressing, bathing, grooming, or toileting? No [email or web address] Information not available 03/22/2025 Mental Status Question Answer Note LastModified by Organization D etails LastModified Time Do you feel stressed (tense, restless, nervous, or anxious, or unable to sleep at night)? AT2810-5 [email or web address] Information not available 03/22/2025 Family History Relationship Description Onset Age of this Age Resolved Age Notes LastModified by Organization Details LastModified Time Mother Diabetes mellitus Not available 2024 10:50:47 Mother Hypercholest erolemia [email or web address] Not available 2024 10:51:02 Mother Hypertensive disorder [email or web address] Not available 2024 10:51:13 Mother Cyst of ovary [email or web address] Not available 2024 09:30:08 Mother Prolapse of female genital organs [email or web address] Not available 2024 09:30:08 Mother Mental disorder [email or web address] Not available 2024 10:53:25 Maternal Grandfather Diabetes mellitus [email or web address] Not available 2024 10:50:47 Father Hypercholest erolemia [email or web address] Not available 2024 10:51:02 Father Hypertensive disorder [email or web address] Not available 2024 10:51:13 Father Mental disorder [email or web address] Not available 2024 10:53:25 Sister Cyst of ovary Not available 2024 09:30:08 Sister Mental disorder [email or web address] Not available 2024 10:53:25 Brother Mental disorder [email or web address] Not available 2024 10:53:25 Medical History Condition [...] ICD10 Code Diagnosis IMO Codes Diagnosis Note 202620 NIKKI VALENTE MD [place] [address] [address] 05/02/2025 15:39:01 05/02/2025 16:54:42 Observational assessment 520811082 Z03.74 Z3A.29 [id number] NIKKI VALENTE MD [place] [address],[place] [address] 05/02/2025 15:39:57 05/02/2025 17:08:25 care status 804226897 Z34.83 [id number] NIKKI VALENTE MD [place] [address],[place] [address] 05/17/2025 09:29:58 05/17/2025 10:22:42 care status [id number] Z34.83 [id number] Mika Chopra MD [place] [address],[place] [address] 06/01/2025 15:30:23 06/01/2025 16:26:38 Observational assessment 859115687 Z03.74 Z3A.33 [id number] [id number] Mika Chopra MD [place] [address],[place] [address] 06/01/2025 15:34:39 06/02/2025 08:47:34 care status 267666836 Z34.83 [id number] Health Concerns Section Related Observation LastModified by Organization Detai ls LastModified Time None Recorded Concern Status LastModified by Organization Details LastModified Time None Recorded Payers Encounter Date Sequence Insurance Name Policy Number Policy Combs Covered Member ID Combs Member ID Guarantor Name 06/01/2025 1 [facility] [id number] Madhuri Hung [id number] Madhuri Hung Notes Date Note Type Note Provider Name and Address Organization Details Recorded Time 06/01/2025 text/html Generic HPI TemplateReported by Patient Mika Chopra MD [address], [place], [address], [facility] 06/01/2025 18:12:52 OBGyn Episode Ob Episode Information Episode Created Date Number of Fetuses Patient Bloodtype Patient rh Status Prepregnancy Weight lbs Domestic Partner Domestic Partner Phone Father Name Rubber Trimmer Status 03/22/20 25 1 Adrian Dobson OPEN Fetus Data First Name Last Name Admitted to NICU Weight (g) Sex Living Outcome Pediatric Complications Fetus ID Race Codes Race Delivery Type [id number] Mike Calculation Initial Mike Date Initial Exam [...] Weight in lbs Pre/Post Dialysis Refused Weight 171.453768923226 BP Diastolic BP Location Tested BP Systolic [...] Weight in lbs Pre/Post Dialysis Refused Weight 184.998387730813 BP Diastolic BP Location Tested BP Systolic [...] Type Weight in lbs Pre/Post Dialysis Refused 190.618797382424 BP Diastolic BP Location Tested BP Systolic [...] Type Weight in lbs Pre/Post Dialysis Refused 204.049974247774 BP Diastolic BP Location Tested BP Systolic [...] Type Weight in lbs Pre/Post Dialysis Refused 210.678280255525 BP Diastolic BP Location Tested BP Systolic [...] Type Weight in lbs Pre/Post Dialysis Refused 203.61732235287 BP Diastolic BP Location Tested BP Systolic [...]
--- OUTSIDE RECORDS SUMMARY | 2025-06-09 11:54 | XMS_ITS | Continuity of Care Document ---
Author Organization [facility] Address [address] [place] [address] Assessment Encounter Date Assessment Date Assessment LastModified [...] d. Imaging None recorde d. Medication Orders None recorde d. Patient TargetsNo targets recorded. Patient InstructionsNo instructions recorded. Reason for Referral None Reported. Results Created Date Observation Date Name Description Value Unit Range Abnormal Flag Note LastModifiedBy Organization Detail LastModifiedTime 03/22/2003/22/2025 CT/GC AND TRICH OMONA S VAGIN JOSSIE (RRNA ), URINE chlamydia trachomatis, PCR Negati ve negati ve Not Available [facility] (Lab) [address], [place], [address], 03/25/2025 06:40:53 03/22/2003/22/2025 CT/GC AND TRICH OMONA S VAGIN JOSSIE (RRNA ), URINE neisseria gonorrhoeae, PCR Negati ve negati ve Not Available [facility] (Lab) [address] [facility], [place], [address], 03/25/2025 06:40:53 03/22/2003/22/2025 CT/GC AND TRICH OMONA S VAGIN JOSSIE (RRNA ), URINE trichomonas vaginalis ribosomal RNA (rrna) Negati ve negati ve 49_CL _SOUR CETVG : Urine - Bladd er Not Available [facility] (Lab) [address] [facility] [facility], [place], [address], 03/25/2025 06:40:53 03/22/2003/22/2025 CULTU RE: URINE result report SEE RESULT S BELOW abnormal Test: Cultu re: Urine Speci men Sourc e: Urine - Clean Catch Speci men Type: Urine Speci men Date: 2024 1041 Resul t Date: 03/25 0537 Resul t Statu s: Final resul t Abnor mal: Yes Resul ting Lab: [facility] [address] [facility] [address] Tel: CULTU RE ----- ----- ----- --- [...] ms and tetra cycli ne. Not Available [facility] (Lab) [address] [facility], [place], [address], 03/25/2025 06:40:54 04/18/2004/18/2025 HEMOG LOBIN (HGB) HGB 12.7 g/dL (based on docume nted legal sex) 11.6-1 5.4 Not Available [facility] (Lab) [address] [facility], [place], [address], 04/19/2025 12:39:16 04/18/20 25 04/18/2025 HEMAT OCRIT (HCT) HCT 39.5 % (based on docume nted legal sex) 34.0-4 5.0 Not Available [facility] (Lab) [address] [facility], [place], [address], 04/19/2025 12:39:16 04/18/20 25 04/18/2025 GTT - GESTA MELIDA L VARINDER Rojas, ACOG OB glucose, 1 hour screen 97 mg/dL 70-135 Not Available [facility] (Lab) [address] [facility], [place], [address], 04/19/2025 12:39:16 04/18/20 25 04/18/2025 HIV 1/2 ANTIG EN/AN TIBOD Y, REFLE X CONFI RMATI ON HIV antigen/anti body Nonrea ctive nonrea ctive HIV-1 antig en and HIV-1 /HIV- 2 antib odies were not detec sherlyn. No labor atory evide nce of HIV infec tion. Not Available [facility] (Lab) [address] [facility], [place], [address], 04/19/2025 12:39:17 04/18/20 25 04/18/2025 RPR SCREE N, REFLE X TITER /CONF IRMAT ION RPR qualitative Nonrea ctive nonrea ctive Not Available [facility] (Lab) [address] [facility], [place], [address], 04/19/2025 12:39:17 03/22/20 25 03/22/2025 US, obste tric, follo w-up No observ ation record ed. [email or web address] [facility] [address], [place], [address], 03/22/2025 15:08:09 03/22/20 25 03/22/2025 US, obste tric, follo w-up No observ ation record ed. [email or web address] [facility] [address], [place], [address], 03/24/2025 01:45:55 05/02/20 25 05/03/2025 US, obste tric, follo w-up No observ ation record ed. [facility] [address], [place], [address], 05/03/2025 13:29:24 05/02/20 25 05/02/2025 US, obste tric, follo w-up No observ ation record ed. RAJIV [facility] [address], [place], [address], 05/05/2025 17:50:17 06/01/20 25 06/01/2025 US, obste tric, follo w-up No observ ation record ed. [facility] [address], [place], [address], 06/01/2025 17:30:03 06/01/20 25 06/01/2025 US, obste tric, follo w-up No observ ation record ed. [email or web address] [facility] [address], [place], [address], 06/05/2025 11:37:37 Result Notes None recorded. Problems Name Problem SNOMED Code Status Onset Date Resolution Date Notes Provider Name and Address Organization Details Recorded Time 57778251 Active 025 Courtney mandujano [facility] 10:46:32 Problem Notes None recorded. Procedures Surgical History Date Name Laterality Status Provider Name and Address Organization Details Recorded Time Date of Last Pap Smear completed Courtney Wynne [facility] 03/22/2025 10:40:36 0 removal of breast implant completed Courtney [facility] 03/22/2025 10:46:06 2 Breast Implants completed Courtney [facility] 03/22/2025 10:45:46 Imaging Results None recorded. Procedure Notes None recorded. Medical Equipment None Reported. Allergies Allergen ID Allergen Name Allergen Category Reaction Reaction Severity Criticality Documentation Date Start Date Code Code System Note Provider Name and Address Organization Details Recorded Time 33738 nitrofura ntoin medicatio n Not available Not available Not available 03/22/2025 7454 RxNorm Courtney [facility] 5 10:22:37 03596 Macrobid medicatio n nausea vomiting Not available Not available Not available 05/02/20252019 30644 1 RxNorm Not Available [facility] - prod 03:19:41 60337 nitrofura ntoin, macrocrys tals / nitrofura ntoin, monohydra te medicatio n vomiting Not available low 05/02/20252019 09744 2 RxNorm Not Available [facility] - prod 03:19:44 Medications Name [...] Address Organization Details Last Updated DateTime 06/01/2025 42957.3977 g 120/83 mm[Hg] Keyanna Tee [facility] 06/01/2025 17:25:07 Social History Question Answer Notes LastModified by Organizat ion Details LastModified Time Tobacco Smoking Status Never Smoker Courtney mandujano [facility] 03/22/2025 10:43:09 Are You Blind Or Do You Have Difficulty Seeing? Yes Glasses [email or web address] Information not available 03/22/2025 What Is Your Level Of Caffeine Consumption? Moderate [email or web address] Information not available 03/22/2025 In The 14 Days Before Symptom Onset, Have You Had Close Contact With A [facility] COVID-19 While That Case Was Ill? No [email or web address] Information not available 03/22/2025 In The 14 Days Before Symptom Onset, Have You Had Close Contact With A Person Who Is Under Investigation For COVID-19 While That Person Was Ill? No [email or web address] Information not available 03/22/2025 Have You Been To An Area Known To Be High Risk For COVID-19? No [email or web address] Information not available 03/22/2025 Are You Deaf Or Do You Have Serious Difficulty Hearing? Yes [email or web address] Information not available 03/22/2025 What Type Of Diet Are You Following? REGULAR [email or web address] Information not available 03/22/2025 What Is The Highest Grade Or Level Of School You Have Completed Or The Highest Degree You Have Received? [id number] [email or web address] Information not available 03/22/2025 Are There Any Guns Present In Your Home? No [email or web address] Information not available 03/22/2025 Do You Use Protection During Sex? No [email or web address] Information not available 03/22/2025 Do You Use Your Seat Belt Or Car Seat Routinely? Yes [email or web address] Information not available 03/22/2025 Are You Sexually Active? Yes Information not available 03/22/2025 Do You Have Smoke And Carbon Monoxide Detectors In Your Home? Yes Information not available 03/22/2025 Do You Use Sunscreen Routinely? No [email or web address] Information not available 03/22/2025 Do You Have Difficulty Walking Or Climbing Stairs? No Information not available 03/22/2025 Sex: Unknown Functional Status Question Answer Note LastModified by Organizat ion Details LastModified Time What is your level of alcohol consumption? None [email or web address] Information not available 03/22/2025 Are you currently employed? Yes Occupational thearpy [employer] [email or web address] Information not available 03/22/2025 Are you able to walk independently without assistance or assistive devices? YESWOREST [email or web address] Information not available 03/22/2025 Are you able to care for yourself independently? Yes [email or web address] Information not available 03/22/2025 Do you have difficulty dressing, bathing, grooming, or toileting? No [email or web address] Information not available 03/22/2025 Mental Status Question Answer Note LastModified by Organization D etails LastModified Time Do you feel stressed (tense, restless, nervous, or anxious, or unable to sleep at night)? [id number] [email or web address] Information not available 03/22/2025 Family History Relationship Description Onset Age of this Age Resolved Age Notes LastModified by Organization Details LastModified Time Mother Diabetes mellitus Not available 2024 10:50:47 Mother Hypercholest erolemia Not available 2024 10:51:02 Mother Hypertensive disorder [email or web address] Not available 2024 10:51:13 Mother Cyst of ovary Not available 2024 09:30:08 Mother Prolapse of female genital organs Not available 2024 09:30:08 Mother Mental disorder Not available 2024 10:53:25 Maternal Grandfather Diabetes mellitus [email or web address] Not available 2024 10:50:47 Father Hypercholest erolemia [email or web address] Not available 2024 10:51:02 Father Hypertensive disorder [email or web address] Not available 2024 10:51:13 Father Mental disorder [email or web address] Not available 2024 10:53:25 Sister Cyst of ovary [email or web address] Not available 2024 09:30:08 Sister Mental disorder [email or web address] Not available 2024 10:53:25 Brother Mental disorder [email or web address] Not available 2024 10:53:25 Medical History Condition [...] ICD10 Code Diagnosis IMO Codes Diagnosis Note [id number] NIKKI VALENTE MD [facility] [address],[place] [address] 05/02/2025 15:39:01 05/02/2025 16:54:42 Observational assessment 238159384 Z03.74 Z3A.29 0110721 [id number] NIKKI VALENTE MD [facility] [address],[place] [address] 05/02/2025 15:39:57 05/02/2025 17:08:25 care status 446646454 Z34.83 [id number] NIKKI VALENTE MD [facility] [address],[place] [address] 05/17/2025 09:29:58 05/17/2025 10:22:42 care status 113358440 Z34.83 [id number] Mika Chopra MD [facility] [address],[place] [address] 06/01/2025 15:30:23 06/01/2025 16:26:38 Observational assessment 431128475 Z03.74 Z3A.33 [id number] [id number] Mika Chopra MD [facility] [address],[place] [address] 06/01/2025 15:34:39 06/02/2025 08:47:34 care status 153530773 Z34.83 [id number] Health Concerns Section Related Observation LastModified by Organization Detai ls LastModified Time None Recorded Concern Status LastModified by Organization Details LastModified Time None Recorded Payers Encounter Date Sequence Insurance Name Policy Number Policy Combs Covered Member ID Combs Member ID Guarantor Name 06/01/[address] [facility] [id number] Madhuri Hung [id number] Madhuri Hung Notes Date Note Type Note Provider Name and Address Organization Details Recorded Time 06/01/2025 text/html Generic HPI TemplateReported by Patient Mika Chopra MD [address], [place], [address], [facility] 06/01/2025 18:12:52 OBGyn Episode Ob Episode Information Episode Created Date Number of Fetuses Patient Bloodtype Patient rh Status Prepregnancy Weight lbs Domestic Partner Domestic Partner Phone Father Name Sql Application Developer Status 03/22/20 25 1 Adrian Dobson OPEN Fetus Data First Name Last Name Admitted to NICU Weight (g) Sex Living Outcome Pediatric Complications Fetus ID Race Codes Race Delivery Type [id number] Mike Calculation Initial Mike Date Initial Exam [...] Weight in lbs Pre/Post Dialysis Refused Weight 171.068371007010 BP Diastolic BP Location Tested BP Systolic [...] Weight in lbs Pre/Post Dialysis Refused Weight 184.245849838917 BP Diastolic BP Location Tested BP Systolic [...] Type Weight in lbs Pre/Post Dialysis Refused 190.964101976570 BP Diastolic BP Location Tested BP Systolic [...] Type Weight in lbs Pre/Post Dialysis Refused 204.142271551901 BP Diastolic BP Location Tested BP Systolic [...] Type Weight in lbs Pre/Post Dialysis Refused 210.990895977530 BP Diastolic BP Location Tested BP Systolic [...] Type Weight in lbs Pre/Post Dialysis Refused 203.33103804264 BP Diastolic BP Location Tested BP Systolic [...]
--- OUTSIDE RECORDS SUMMARY | 2025-06-09 11:54 | XMS_ITS | Continuity of Care Document ---
Author Organization [facility], [facility] Address [address] [place] [address] [place] [address] Assessment No assessment recorded. Plan of Treatment [...] Not available Not available Not available Lab drug screen, urine 2024 025 [facility], [address], [place], [address], 03/24/2025 01:45:20 culture , urine 2024 025 [facility] (Lab), [address], [place], [address], 03/25/2025 06:40:54 CT + NG + TV, RNA, unspeci fied specime n 2024 025 [facility] (Lab), [address], [place], [address], 03/25/2025 06:40:53 Referral None recorde d. Procedures None recorde [...] PCR Negati ve negati ve Not Available [facility] (Lab) [address], [place], [address], 03/25/2025 06:40:53 03/22/2003/22/2025 CT/GC AND TRICH OMONA S VAGIN JOSSIE (RRNA ), URINE neisseria gonorrhoeae, PCR Negati ve negati ve Not Available [facility] (Lab) [address], [place], [address], 03/25/2025 06:40:53 03/22/2003/22/2025 CT/GC AND TRICH OMONA S VAGIN JOSSIE (RRNA ), URINE trichomonas vaginalis ribosomal RNA (rrna) [place] [address] 49_CL _SOUR CETVG : Urine - Bladd er Not Available [facility] (Lab) [address], [place], [address], 03/25/2025 06:40:53 03/22/2003/22/2025 CULTU RE: URINE result report SEE RESULT S BELOW abnormal Test: Cultu re: Urine Speci men Sourc e: Urine - Clean Catch Speci men Type: Urine Speci men Date: 2024 1041 Resul t Date: 03/25 0537 Resul t Statu s: Final resul t Abnor mal: Yes Resul santhoshg Lab: [facility] [address] [facility] [address] Tel: CULTU RE ----- ----- ----- --- [...] ms and tetra cycli ne. Not Available [facility] (Lab) [address], [place], [address], 03/25/2025 06:40:54 03/22/20 25 03/22/2025 US, obste tric, follo w-up No observ ation record ed. [email or web address] [facility] [address], [place], [address], 03/22/2025 15:08:09 03/22/20 25 03/22/2025 US, obste tric, follo w-up No observ ation record ed. [facility] [address], [place], [address], 03/24/2025 01:45:55 05/02/20 25 05/03/2025 US, obste tric, follo w-up No observ ation record ed. [facility] [address], [place], [address], 05/03/2025 13:29:24 05/02/20 25 05/02/2025 US, obste tric, follo w-up No observ ation record ed. RAJIV [facility] [address], [place], [address], 05/05/2025 17:50:17 06/01/20 25 06/01/2025 US, obste tric, follo w-up No observ ation record ed. [email or web address] [address], [place], [address], 06/01/2025 17:30:03 06/01/20 25 06/01/2025 US, obste tric, follo w-up No observ ation record ed. [email or web address] [facility] [address], [place], [address], 06/05/2025 11:37:37 Result Notes None recorded. Problems Name Problem SNOMED Code Status Onset Date Resolution Date Notes Provider Name and Address Organization Details Recorded Time 24364830 Active 025 [facility] 5 10:46:32 Problem Notes None recorded. Procedures Surgical History Date Name Laterality Status Provider Name and Address Organization Details Recorded Time 5 Date of Last Pap Smear completed [facility] 03/22/2025 10:40:36 0 removal of breast implant completed [facility] 03/22/2025 10:46:06 [address] Implants completed [facility] 03/22/2025 10:45:46 Imaging Results None recorded. Procedure Notes None recorded. Medical Equipment None Reported. Allergies Allergen ID Allergen Name Allergen Category Reaction Reaction Severity Criticality Documentation Date Start Date Code Code System Note Provider Name and Address Organization Details Recorded Time 01667 nitrofura ntoin medicatio n Not available Not available Not available 03/22/2025 7454 RxNorm [facility] 5 10:22:37 21649 Macrobid medicatio n nausea vomiting Not available Not available Not available 05/02/20252019 96647 1 RxNorm Not Available [facility] - prod 5 03:19:41 97275 nitrofura ntoin, macrocrys tals / nitrofura ntoin, monohydra te medicatio n vomiting Not available low 05/02/20252019 23732 2 RxNorm Not Available [facility] - prod 5 03:19:44 Medications [...] Available Not Available Vitals Date Recorded Body height Body mass index (BMI) Body weight Systolic And Diastolic Provider Name and Address Organization Details Last Updated DateTime 03/22/2025 168.91 cm 27.2 kg/m2 46818.3 g 123/82 mm[Hg] Courtney Wynne [facility] 03/22/2025 10:40:18 Social History Question Answer Notes LastModified by Organizat ion Details LastModified Time Tobacco Smoking Status Never Smoker Courtney Wynne nazia [facility] 03/22/2025 10:43:09 Are You Blind Or Do You Have Difficulty Seeing? Yes Glasses [email or web address] Information not available 03/22/2025 What Is Your Level Of Caffeine Consumption? Moderate [email or web address] Information not available 03/22/2025 In The 14 Days Before Symptom Onset, Have You Had Close Contact With A Laboratory-[facility] COVID-19 While That Case Was Ill? No Information not available 03/22/2025 In The 14 Days Before Symptom Onset, Have You Had Close Contact With A Person Who Is Under Investigation For COVID-19 While That Person Was Ill? No [email or web address] Information not available 03/22/2025 Have You Been To An Area Known To Be High Risk For COVID-19? No [email or web address] Information not available 03/22/2025 Are You Deaf Or Do You Have Serious Difficulty Hearing? Yes [email or web address] Information not available 03/22/2025 What Type Of Diet Are You Following? REGULAR [email or web address] Information not available 03/22/2025 What Is The Highest Grade Or Level Of School You Have Completed Or The Highest Degree You Have Received? [id number] Information not available 03/22/2025 Are There Any Guns Present In Your Home? No [email or web address] Information not available 03/22/2025 Do You Use Protection During Sex? No [email or web address] Information not available 03/22/2025 Do You Use Your Seat Belt Or Car Seat Routinely? Yes Information not available 03/22/2025 Are You Sexually Active? Yes [email or web address] Information not available 03/22/2025 Do You Have Smoke And Carbon Monoxide Detectors In Your Home? Yes [email or web address] Information not available 03/22/2025 Do You Use Sunscreen Routinely? No [email or web address] Information not available 03/22/2025 Do You Have Difficulty Walking Or Climbing Stairs? No [email or web address] Information not available 03/22/2025 Sex: Unknown Functional Status Question Answer Note LastModified by Organizat ion Details LastModified Time What is your level of alcohol consumption? None [email or web address] Information not available 03/22/2025 Are you currently employed? Yes Occupational thearpy [employer] yhuiif63 Information not available 03/22/2025 Are you able to walk independently without assistance or assistive devices? YESWOREST Information not available 03/22/2025 Are you able to care for yourself independently? Yes Information not available 03/22/2025 Do you have difficulty dressing, bathing, grooming, or toileting? No [email or web address] Information not available 03/22/2025 Mental Status Question Answer Note LastModified by Organization D etails LastModified Time Do you feel stressed (tense, restless, nervous, or anxious, or unable to sleep at night)? [id number] [email or web address] Information not available 03/22/2025 Family History Relationship Description Onset Age of this Age Resolved Age Notes LastModified by Organization Details LastModified Time Mother Diabetes mellitus [email or web address] Not available 2024 10:50:47 Mother Hypercholest erolemia Not available 2024 10:51:02 Mother Hypertensive disorder [email or web address] Not available 2024 10:51:13 Mother Cyst of ovary mlivzd92 Not available 2024 09:30:08 Mother Prolapse of female genital organs Not available 2024 09:30:08 Mother Mental disorder [email or web address] Not available 2024 10:53:25 Maternal Grandfather Diabetes mellitus [email or web address] Not available 2024 10:50:47 Father Hypercholest erolemia [email or web address] Not available 2024 10:51:02 Father Hypertensive disorder Not available 2024 10:51:13 Father Mental disorder Not available 2024 10:53:25 Sister Cyst of ovary [email or web address] Not available 2024 09:30:08 Sister Mental disorder [email or web address] Not available 2024 10:53:25 Brother Mental disorder [...] ICD10 Code Diagnosis IMO Codes Diagnosis Note [id number] NIKKI VALENTE MD [facility] [address] [address] 03/22/2025 09:28:57 03/22/2025 10:36:37 Observational assessment 580292438 Z03.74 Z3A.22 7020015 [id number] NIKKI VALENTE MD [facility] [address] [address] 03/22/2025 09:45:08 03/22/2025 16:11:11 state of fetus 01850101 Z34.90 [id number] Health Concerns Section Related Observation LastModified by Organization Detai ls LastModified Time None Recorded Concern Status LastModified by Organization Details LastModified Time None Recorded Payers Encounter Date Sequence Insurance Name Policy Number Policy Combs Covered Member ID Combs Member ID Guarantor Name 03/22/2025 1 [facility] [id number] Madhuri Hung [id number] Madhuri Hung OBGyn Episode Ob Episode Information Episode Created Date Number of Fetuses Patient Bloodtype Patient rh Status Prepregnancy Weight lbs Domestic Partner Domestic Partner Phone Father Name Dock Superintendent Status 03/22/20 25 1 Adrian Dobson OPEN Fetus Data First Name Last Name Admitted to NICU Weight (g) Sex Living Outcome Pediatric Complications Fetus ID Race Codes Race Delivery Type [id number] Mike Calculation Initial Mike Date Initial Exam [...] Weight in lbs Pre/Post Dialysis Refused Weight 171.193897291392 BP Diastolic BP Location Tested BP Systolic [...] Weight in lbs Pre/Post Dialysis Refused Weight 184.959881778104 BP Diastolic BP Location Tested BP Systolic [...] Type Weight in lbs Pre/Post Dialysis Refused 190.603070315775 BP Diastolic BP Location Tested BP Systolic [...] Type Weight in lbs Pre/Post Dialysis Refused 204.975861864129 BP Diastolic BP Location Tested BP Systolic [...] Type Weight in lbs Pre/Post Dialysis Refused 210.355340532819 BP Diastolic BP Location Tested BP Systolic [...] Type Weight in lbs Pre/Post Dialysis Refused 203.71736977887 BP Diastolic BP Location Tested BP Systolic [...]
--- OUTSIDE RECORDS SUMMARY | 2025-06-09 11:54 | XMS_ITS | Encounter Summary ---
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
--- OUTSIDE RECORDS SUMMARY | 2025-06-09 11:54 | XMS_ITS | Encounter Summary ---
Author Organization [facility] Address [address] [facility] [place] [address] Care Team Providers Care Modeler Name Role Phone Jack Cruz MD Primary Care Provider [phone] Encounter Details Date Type Department Care Team (Late st Contact Info) Description 09/06/2019 Telephone [facility] [address] [place] [address] Alvin Pickard MD [address] [place] [place] [id number] Social History Tobacco Use Types Packs/Day Years [...] * Telephone Encounter - Janessa Thomas - 09/06/2019 12:24 PM CDT Per Azucena steel Dean all auths are extended until 11/13/19. documented in this encounter Plan of Treatment Not on file documented as of this encounter Visit Diagnoses Not on filedocumented in this encounter Additional Health Concerns Infection Onset Date Last Indicated Resolved Time COVID-19 Under Investigation 10/31/2019 10/31/2019 11/01/2019 6:33 AM CDT documented as of this encounter Care Teams Modeler Relationship Specialty Start Date End Date Jack Cruz MD PCP - General 06/14/19 documented as of this encounter
--- OUTSIDE RECORDS SUMMARY | 2025-06-09 11:54 | XMS_ITS | Encounter Summary ---
Author Organization [facility] Address [address] [place] [address] Phone Care Team Providers Care Battery Container Finishing Hand Name Role Phone Jack Cruz MD Primary Care Provider [phone] Raul Peña APRN, CNP Primary Care Pr ovider Reason for Visit * Reason Comments Medication Refill Encounter Details Date Type Department Care Team (Late st Contact Info) Description 04/12/2021 Refill [facility] - Family Medicine [facility] [address] [place] [id number] Jack Crzu MD [address] [place] [address] Medication Refill Social History Tobacco Use Types [...] encounter Miscellaneous Notes * Telephone Encounter - Deysi Frankel RN - 04/12/2021 2:20 PM CDT Medication failed the protocol, provider to review and approve the medication order if appropriate. Requested Prescriptions Pending Prescriptions Disp Refills lamoTRIgine (LaMICtal) 25 MG Tablet [Pharmacy Med Name: LAMOTRIGINE 25MG TABLETS] 120 Tablet 5 Sig: TAKE 1 TABLET BY MOUTH FOUR TIMES DAILY Not Delegated - Anticonvulsants Protocol Failed - 04/12/2021 5:46 AM Failed - This refill cannot be delegated Passed - Visit with relevant provider in past 12 months or upcoming 90 days Recent Visits Date Type Provider Dept 03/26/21 Telemedicine Raul Peña APRN, FRENCH TUTOR [facility] 12/05/20 Office Visit Jack Cruz MD [facility] 11/05/20 Office Visit Jack Cruz MD [facility] 10/16/20 Telemedicine Jack Cruz MD [facility] 07/31/20 Office Visit Jack Cruz MD [facility] Showing recent visits within past 365 days and meeting all other requirements Future Appointments No visits were found meeting these conditions. Showing future appointments within next 90 days and meeting all other requirements documented in this encounter Plan of Treatment Not on file documented as of this encounter Visit Diagnoses Not on filedocumented in this encounter Additional Health Concerns Infection Onset Date Last Indicated Resolved Time COVID - 19 05/16/2021 05/16/2021 05/16/2021 8:55 AM [facility] COVID - 19 05/20/2021 05/20/2021 06/09/2021 12:1 6 AM [facility] Respiratory Rule Out - RPA 09/08/2022 09/08/2022 0 09/08/2022 2:21 PM CDT COVID - 19 12/01/2022 12/01/2022 12/11/2022 12:1 6 AM CDT COVID - 19 Confirmed 12/01/2022 12/01/2022 023 12:16 AM CDT COVID - 19 01/15/2023 01/15/2023 01/15/2023 9:02 AM CDT COVID - 19 01/15/2023 01/15/2023 01/25/2023 12:1 6 AM CDT Respiratory Rule-Out 08/07/2023 08/07/2023 024 8:55 AM [facility] COVID - 19 08/07/2023 08/07/2023 08/07/2023 8:53 AM [facility] COVID - 19 Confirmed 08/07/2023 08/07/2023 024 12:16 AM CDT COVID - 19 05/22/2024 05/22/2024 05/22/2024 4:24 PM [facility] COVID - 19 09/26/2024 09/26/2024 09/26/2024 1:01 PM CDT Respiratory Rule-Out 09/26/2024 09/26/2024 025 1:01 PM CDT COVID - 19 10/19/2024 10/19/2024 10/19/2024 8:24 AM CDT Assessment Noted Time PHQ-9 Depression Total Score: 7 11/20/19 19 1:17 PM CDT documented as of this encounter Care Teams Battery Container Finishing Hand Relationship Specialty Start Date End Date Jack Cruz MD PCP - General Family Medicine 11/19/18 12/11/24 Raul Peña APRN, FRENCH TUTOR [address] [place] [address] PCP - General Advanced Practice Nurse 12/12/24 documented as of this encounter
--- OUTSIDE RECORDS SUMMARY | 2025-06-09 11:54 | XMS_ITS | Continuity of Care Document ---
Author Organization [facility] Address [address] [place] [address] Assessment No assessment recorded. Plan of Treatment [...] PCR Negati ve negati ve Not Available [facility] (Lab) [address], [place], [address], 03/25/2025 06:40:53 03/22/2003/22/2025 CT/GC AND TRICH OMONA S VAGIN JOSSIE (RRNA ), URINE neisseria gonorrhoeae, PCR Negati ve negati ve Not Available [facility] (Lab) [address] [place], [address], 03/25/2025 06:40:53 03/22/2003/22/2025 CT/GC AND TRICH OMONA S VAGIN JOSSIE (RRNA ), URINE trichomonas vaginalis ribosomal RNA (rrna) Negati ve negati ve 49_CL _SOUR CETVG : Urine - Bladd er Not Available [facility] (Lab) [address] [place], [address], 03/25/2025 06:40:53 03/22/2003/22/2025 CULTU RE: URINE result report SEE RESULT S BELOW abnormal Test: Cultu re: Urine Speci men Sourc e: Urine - Clean Catch Speci men Type: Urine Speci men Date: 2024 1041 Resul t Date: 03/25 0537 Resul t Statu s: Final resul t Abnor mal: Yes Resul ting Lab: [facility] [address] [facility] [address] Tel: CULTU RE ----- ----- ----- --- [...] ms and tetra cycli ne. Not Available [facility] (Lab) [address], [place], [address], 03/25/2025 06:40:54 04/18/2004/18/2025 HEMOG LOBIN (HGB) HGB 12.7 g/dL (based on docume nted legal sex) 11.6-1 5.4 Not Available [facility] (Lab) [address] [facility], [place], [address], 04/19/2025 12:39:16 04/18/20 25 04/18/2025 HEMAT OCRIT (HCT) HCT 39.5 % (based on docume nted legal sex) 34.0-4 5.0 Not Available [facility] (Lab) [address] [facility], [place], [address], 04/19/2025 12:39:16 04/18/20 25 04/18/2025 GTT - GESTA MELIDA L SCREE N, ACOG OB glucose, 1 hour screen 97 mg/dL 70-135 Not Available [facility] (Lab) [address] [facility], [place], [address], 04/19/2025 12:39:16 04/18/20 25 04/18/2025 HIV 1/2 ANTIG EN/AN TIBOD Y, REFLE X CONFI RMATI ON HIV antigen/anti body Nonrea ctive nonrea ctive HIV-1 antig en and HIV-1 /HIV- 2 antib odies were not detec sherlyn. No labor atory evide nce of HIV infec tion. Not Available [facility] (Lab) [address] [facility], [place], [address], 04/19/2025 12:39:17 04/18/20 25 04/18/2025 RPR SCREE N, REFLE X TITER /CONF IRMAT ION RPR qualitative Nonrea ctive nonrea ctive Not Available [facility] (Lab) [address] [facility], [place], [address], 04/19/2025 12:39:17 03/22/20 25 03/22/2025 US, obste tric, follo w-up No observ ation record ed. [email or web address] [facility] [address], [place], [address], 03/22/2025 15:08:09 03/22/20 25 03/22/2025 US, obste tric, follo w-up No observ ation record ed. Ruthann [address], [place], [address], 03/24/2025 01:45:55 05/02/20 25 05/03/2025 US, obste tric, follo w-up No observ ation record ed. [facility] [address], [place], [address], 05/03/2025 13:29:24 05/02/20 25 05/02/2025 US, obste tric, follo w-up No observ ation record ed. RAJIV Ruthann [address], [place], [address], 05/05/2025 17:50:17 06/01/20 25 06/01/2025 US, obste tric, follo w-up No observ ation record ed. [facility] [address], [place], [address], 06/01/2025 17:30:03 06/01/20 25 06/01/2025 US, obste tric, follo w-up No observ ation record ed. yany Torrese [address], [place], [address], 06/05/2025 11:37:37 Result Notes None recorded. Problems Name Problem SNOMED Code Status Onset Date Resolution Date Notes Provider Name and Address Organization Details Recorded Time 14253932 [facility] Problem Notes None recorded. Procedures Surgical History Date Name Laterality Status Provider Name and Address Organization Details Recorded Time 5 Date of Last Pap Smear completed [facility] 03/22/2025 10:40:36 0 removal of breast implant completed [facility] 03/22/2025 10:46:06 2 Breast Implants completed Courtney Wynne [facility] 03/22/2025 10:45:46 Imaging Results None recorded. Procedure Notes None recorded. Medical Equipment None Reported. Allergies Allergen ID Allergen Name Allergen Category Reaction Reaction Severity Criticality Documentation Date Start Date Code Code System Note Provider Name and Address Organization Details Recorded Time 72918 nitrofura ntoin medicatio n Not available Not available Not available 03/22/2025 7454 RxNorm Courtney Wynne [facility] 5 10:22:37 76476 Macrobid medicatio n nausea vomiting Not available Not available Not available 05/02/20252019 88225 1 RxNorm Not Available [employer] - prod 5 03:19:41 17805 nitrofura ntoin, macrocrys tals / nitrofura ntoin, monohydra te medicatio n vomiting Not available low 05/02/20252019 65474 2 RxNorm Not Available [employer] - prod 5 03:19:44 Medications [...] and Address Organization Details Last Updated DateTime 04/18/2025 168.91 cm 29.3 kg/m2 72264 g 129/85 mm[Hg] Courtney Wynne [facility] 04/18/2025 09:16:39 Social History Question Answer Notes LastModified by Organizat ion Details LastModified Time Tobacco Smoking Status Never Smoker Courtney Wynne [facility] 03/22/2025 10:43:09 Are You Blind Or Do You Have Difficulty Seeing? Yes Glasses [email or web address] Information not available 03/22/2025 What Is Your Level Of Caffeine Consumption? Moderate Information not available 03/22/2025 In The 14 Days Before Symptom Onset, Have You Had Close Contact With A Laboratory-confir med COVID-19 While That Case Was Ill? No [email or web address] Information not available 03/22/2025 In The 14 Days Before Symptom Onset, Have You Had Close Contact With A Person Who Is Under Investigation For COVID-19 While That Person Was Ill? No [email or web address] Information not available 03/22/2025 Have You Been To An Area Known To Be High Risk For COVID-19? No [email or web address] Information not available 03/22/2025 Are You Deaf Or Do You Have Serious Difficulty Hearing? Yes Information not available 03/22/2025 What Type Of Diet Are You Following? REGULAR Information not available 03/22/2025 What Is The Highest Grade Or Level Of School You Have Completed Or The Highest Degree You Have Received? [id number] [email or web address] Information not available 03/22/2025 Are There Any Guns Present In Your Home? No [email or web address] Information not available 03/22/2025 Do You Use Protection During Sex? No Information not available 03/22/2025 Do You Use Your Seat Belt Or Car Seat Routinely? Yes [email or web address] Information not available 03/22/2025 Are You Sexually Active? Yes [email or web address] Information not available 03/22/2025 Do You Have Smoke And Carbon Monoxide Detectors In Your Home? Yes [email or web address] Information not available 03/22/2025 Do You Use Sunscreen Routinely? No Information not available 03/22/2025 Do You Have Difficulty Walking Or Climbing Stairs? No [email or web address] Information not available 03/22/2025 Sex: Unknown Functional Status Question Answer Note LastModified by Organizat ion Details LastModified Time What is your level of alcohol consumption? 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 YESWOREST [email or web address] Information not available 03/22/2025 Are you able to care for yourself independently? Yes [email or web address] Information not available 03/22/2025 Do you have difficulty dressing, bathing, grooming, or toileting? No [email or web address] Information not available 03/22/2025 Mental Status Question Answer Note LastModified by Organization D etails LastModified Time Do you feel stressed (tense, restless, nervous, or anxious, or unable to sleep at night)? [id number] [email or web address] Information not available 03/22/2025 Family History Relationship Description Onset Age of this Age Resolved Age Notes LastModified by Organization Details LastModified Time Mother Diabetes mellitus [email or web address] Not available 2024 10:50:47 Mother Hypercholest erolemia [email or web address] Not available 2024 10:51:02 Mother Hypertensive disorder Not available 2024 10:51:13 Mother Cyst of ovary [email or web address] Not available 2024 09:30:08 Mother Prolapse of female genital organs [email or web address] Not available 2024 09:30:08 Mother Mental disorder [email or web address] Not available 2024 10:53:25 Maternal Grandfather Diabetes mellitus [email or web address] Not available 2024 10:50:47 Father Hypercholest erolemia Not available 2024 10:51:02 Father Hypertensive disorder [email or web address] Not available 2024 10:51:13 Father Mental disorder [email or web address] Not available 2024 10:53:25 Sister Cyst of ovary [email or web address] Not available 2024 09:30:08 Sister Mental disorder [email or web address] Not available 2024 10:53:25 Brother Mental disorder [email or web address] Not available 2024 10:53:25 Medical History Condition [...] ICD10 Code Diagnosis IMO Codes Diagnosis Note [id number] NIKKI VALENTE MD [facility] [address] [address] 03/22/2025 09:28:57 03/22/2025 10:36:37 Observational assessment [id number] Z03.74 Z3A.22 [id number] NIKKI VALENTE MD [facility] [address] [address] 03/22/2025 09:45:08 03/22/2025 16:11:11 state of fetus 74837123 Z34.90 [id number] NIKKI VALENTE MD [facility] [address] [address] 04/18/2025 09:02:55 04/18/2025 10:21:49 care status [id number] Z34.83 [id number] Health Concerns Section Related Observation LastModified by Organization Detai ls LastModified Time None Recorded Concern Status LastModified by Organization Details LastModified Time None Recorded Payers Encounter Date Sequence Insurance Name Policy Number Policy Combs Covered Member ID Combs Member ID Guarantor Name 04/18/2025 1 [facility] [id number] [facility] [id number] [facility] Notes Date Note Type Note Provider Name and Address Organization Details Recorded Time 04/18/2025 text/html Generic HPI TemplateReported by Patient NIKKI VALENTE MD [address], [place], [address], [facility] 04/18/2025 09:55:33 OBGyn Episode Ob Episode Information Episode Created Date Number of Fetuses Patient Bloodtype Patient rh Status Prepregnancy Weight lbs Domestic Partner Domestic Partner Phone Father Name Academic Registrar Status 03/22/20 1 Adrian Dobson OPEN Fetus Data First Name Last Name Admitted to NICU Weight (g) Sex Living Outcome Pediatric Complications Fetus ID Race Codes Race Delivery Type [id number] Mike Calculation Initial Mike Date Initial Exam [...] Weight in lbs Pre/Post Dialysis Refused Weight 171.921358507140 BP Diastolic BP Location Tested BP Systolic [...] Weight in lbs Pre/Post Dialysis Refused Weight 184.967102730597 BP Diastolic BP Location Tested BP Systolic [...] Type Weight in lbs Pre/Post Dialysis Refused 190.714984557909 BP Diastolic BP Location Tested BP Systolic [...] Type Weight in lbs Pre/Post Dialysis Refused 204.981301325299 BP Diastolic BP Location Tested BP Systolic [...] Type Weight in lbs Pre/Post Dialysis Refused 210.663714147354 BP Diastolic BP Location Tested BP Systolic [...] Type Weight in lbs Pre/Post Dialysis Refused 203.94333622533 BP Diastolic BP Location Tested BP Systolic [...]
--- OUTSIDE RECORDS SUMMARY | 2025-06-09 11:54 | XMS_ITS | Continuity of Care Document ---
Author Organization [facility] Address [address] [place] [address] Assessment No assessment recorded. Plan of Treatment [...] PCR Negati ve negati ve Not Available [facility] (Lab) [address], [place], [address], 03/25/2025 06:40:53 03/22/2003/22/2025 CT/GC AND TRICH OMONA S VAGIN JOSSIE (RRNA ), URINE neisseria gonorrhoeae, PCR Negati ve negati ve Not Available [facility] (Lab) [address] [place], [address], 03/25/2025 06:40:53 03/22/2003/22/2025 CT/GC AND TRICH OMONA S VAGIN JOSSIE (RRNA ), URINE trichomonas vaginalis ribosomal RNA (rrna) Negati ve negati ve 49_CL _SOUR CETVG : Urine - Bladd er Not Available [facility] (Lab) [address] , [place], [address], 03/25/2025 06:40:53 03/22/2003/22/2025 CULTU RE: URINE result report SEE RESULT S BELOW abnormal Test: Cultu re: Urine Speci men Sourc e: Urine - Clean Catch Speci men Type: Urine Speci men Date: 2024 1041 Resul t Date: 03/25 0537 Resul t Statu s: Final resul t Abnor mal: Yes Resul ting Lab: [facility] [address] [facility] [address] Tel: CULTU RE ----- ----- ----- --- [...] ms and tetra cycli ne. Not Available [facility] (Lab) [address], [place], [address], 03/25/2025 06:40:54 04/18/2004/18/2025 HEMOG LOBIN (HGB) HGB 12.7 g/dL (based on docume nted legal sex) 11.6-1 5.4 Not Available [facility] (Lab) [address] [facility] [address], [place], [address], 04/19/2025 12:39:16 04/18/20 25 04/18/2025 HEMAT OCRIT (HCT) HCT 39.5 % (based on docume nted legal sex) 34.0-4 5.0 Not Available [facility] (Lab) [address], [place], [address], 04/19/2025 12:39:16 04/18/20 25 04/18/2025 GTT - GESTA MELIDA L SCREE N, ACOG OB glucose, 1 hour screen 97 mg/dL 70-135 Not Available [facility] (Lab) [address], [place], [address], 04/19/2025 12:39:16 04/18/20 25 04/18/2025 HIV 1/2 ANTIG EN/AN TIBOD Y, REFLE X CONFI RMATI ON HIV antigen/anti body Nonrea ctive nonrea ctive HIV-1 antig en and HIV-1 /HIV- 2 antib odies were not detec sherlyn. No labor atory evide nce of HIV infec tion. Not Available [facility] (Lab) [address], [place], [address], 04/19/2025 12:39:17 04/18/20 25 04/18/2025 RPR SCREE N, REFLE X TITER /CONF IRMAT ION RPR qualitative Nonrea ctive nonrea ctive Not Available [facility] (Lab) [address], [place], [address], 04/19/2025 12:39:17 03/22/20 25 03/22/2025 US, obste tric, follo w-up No observ ation record ed. [email or web address] [place] [address], [place], [address], 03/22/2025 15:08:09 03/22/20 25 03/22/2025 US, obste tric, follo w-up No observ ation record ed. [email or web address] [place] [address], [place], [address], 03/24/2025 01:45:55 05/02/20 25 05/03/2025 US, obste tric, follo w-up No observ ation record ed. [facility] [address], [place], [address], 05/03/2025 13:29:24 05/02/20 25 05/02/2025 US, obste tric, follo w-up No observ ation record ed. RAJIV [place] [address], [place], [address], 05/05/2025 17:50:17 06/01/20 25 06/01/2025 US, obste tric, follo w-up No observ ation record ed. [facility] [address], [place], [address], 06/01/2025 17:30:03 06/01/20 25 06/01/2025 US, obste tric, follo w-up No observ ation record ed. yany Torrese [address], [place], [address], 06/05/2025 11:37:37 Result Notes None recorded. Problems Name Problem SNOMED Code Status Onset Date Resolution Date Notes Provider Name and Address Organization Details Recorded Time 37639645 [facility] Problem Notes None recorded. Procedures Surgical History Date Name Laterality Status Provider Name and Address Organization Details Recorded Time 5 Date of Last Pap Smear completed [facility] 03/22/2025 10:40:36 0 removal of breast implant completed [facility] 03/22/2025 10:46:06 2 Breast Implants completed Courtney Wynne [facility] 03/22/2025 10:45:46 Imaging Results None recorded. Procedure Notes None recorded. Medical Equipment None Reported. Allergies Allergen ID Allergen Name Allergen Category Reaction Reaction Severity Criticality Documentation Date Start Date Code Code System Note Provider Name and Address Organization Details Recorded Time 56630 nitrofura ntoin medicatio n Not available Not available Not available 03/22/2025 7454 RxNorm Courtney Wynne [facility] 5 10:22:37 63618 Macrobid medicatio n nausea vomiting Not available Not available Not available 05/02/20252019 19297 1 RxNorm Not Available [facility] - prod 5 03:19:41 85223 nitrofura ntoin, macrocrys tals / nitrofura ntoin, monohydra te medicatio n vomiting Not available low 05/02/20252019 77870 2 RxNorm Not Available [facility] - prod 5 03:19:44 Medications [...] Address Organization Details Last Updated DateTime 05/17/2025 30147.843 48 g 32.4 kg/m2 168.91 cm 124/78 mm[Hg] Courtney Wynne [facility] 05/17/2025 10:02:00 Social History Question Answer Notes LastModified by Organizat ion Details LastModified Time Tobacco Smoking Status Never Smoker Courtney Wynne [facility] 03/22/2025 10:43:09 Are You Blind Or Do You Have Difficulty Seeing? Yes Glasses [email or web address] Information not available 03/22/2025 What Is Your Level Of Caffeine Consumption? Moderate [email or web address] Information not available 03/22/2025 In The 14 Days Before Symptom Onset, Have You Had Close Contact With A Laboratory-confir med COVID-19 While That Case Was Ill? No [email or web address] Information not available 03/22/2025 In The 14 Days Before Symptom Onset, Have You Had Close Contact With A Person Who Is Under Investigation For COVID-19 While That Person Was Ill? No [email or web address] Information not available 03/22/2025 Have You Been To An Area Known To Be High Risk For COVID-19? No [email or web address] Information not available 03/22/2025 Are You Deaf Or Do You Have Serious Difficulty Hearing? Yes [email or web address] Information not available 03/22/2025 What Type Of Diet Are You Following? REGULAR [email or web address] Information not available 03/22/2025 What Is The Highest Grade Or Level Of School You Have Completed Or The Highest Degree You Have Received? CI23938-8 [email or web address] Information not available 03/22/2025 Are There Any Guns Present In Your Home? No [email or web address] Information not available 03/22/2025 Do You Use Protection During Sex? No [email or web address] Information not available 03/22/2025 Do You Use Your Seat Belt Or Car Seat Routinely? Yes [email or web address] Information not available 03/22/2025 Are You Sexually Active? Yes [email or web address] Information not available 03/22/2025 Do You Have Smoke And Carbon Monoxide Detectors In Your Home? Yes Information not available 03/22/2025 Do You Use Sunscreen Routinely? No Information not available 03/22/2025 Do You Have Difficulty Walking Or Climbing Stairs? No [email or web address] Information not available 03/22/2025 Sex: Unknown Functional Status Question Answer Note LastModified by Organizat ion Details LastModified Time What is your level of alcohol consumption? 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 YESWOREST [email or web address] Information not available 03/22/2025 Are you able to care for yourself independently? Yes [email or web address] Information not available 03/22/2025 Do you have difficulty dressing, bathing, grooming, or toileting? No [email or web address] Information not available 03/22/2025 Mental Status Question Answer Note LastModified by Organization D etails LastModified Time Do you feel stressed (tense, restless, nervous, or anxious, or unable to sleep at night)? HQ3498-6 [email or web address] Information not available 03/22/2025 Family History Relationship Description Onset Age of this Age Resolved Age Notes LastModified by Organization Details LastModified Time Mother Diabetes mellitus Not available 2024 10:50:47 Mother Hypercholest erolemia [email or web address] Not available 2024 10:51:02 Mother Hypertensive disorder Not available 2024 10:51:13 Mother Cyst of ovary Not available 2024 09:30:08 Mother Prolapse of female genital organs Not available 2024 09:30:08 Mother Mental disorder [email or web address] Not available 2024 10:53:25 Maternal Grandfather Diabetes mellitus [email or web address] Not available 2024 10:50:47 Father Hypercholest erolemia Not available 2024 10:51:02 Father Hypertensive disorder [email or web address] Not available 2024 10:51:13 Father Mental disorder [email or web address] Not available 2024 10:53:25 Sister Cyst of ovary [email or web address] Not available 2024 09:30:08 Sister Mental disorder [email or web address] Not available 2024 10:53:25 Brother Mental disorder [email or web address] Not available 2024 10:53:25 Medical History Condition [...] ICD10 Code Diagnosis IMO Codes Diagnosis Note [id number] NIKKI VALENTE MD [place] [address],[place] [address] 04/18/2025 09:02:55 04/18/2025 10:21:49 care status [id number] Z34.83 [id number] NIKKI VALENTE MD [place] [address],[place] [address] 05/02/2025 15:39:01 05/02/2025 16:54:42 Observational assessment [id number] Z03.74 Z3A.29 [id number] NIKKI VALENTE MD [place] [address],[place] [address] 05/02/2025 15:39:57 05/02/2025 17:08:25 care status 333071404 Z34.83 [id number] NIKKI VALENTE MD [place] [address],[place] [address] 05/17/2025 09:29:58 05/17/2025 10:22:42 care status 579190992 Z34.83 [id number] Health Concerns Section Related Observation LastModified by Organization Detai ls LastModified Time None Recorded Concern Status LastModified by Organization Details LastModified Time None Recorded Payers Encounter Date Sequence Insurance Name Policy Number Policy Combs Covered Member ID Combs Member ID Guarantor Name 05/17/2025 1 [facility] [id number] Madhuri Abel Abhilash [id number] Madhuri Hung Notes Date Note Type Note Provider Name and Address Organization Details Recorded Time 05/17/2025 text/html Generic HPI TemplateReported by Patient NIKKI VALENTE MD [address], [place], [address], [facility] 05/17/2025 10:15:11 OBGyn Episode Ob Episode Information Episode Created Date Number of Fetuses Patient Bloodtype Patient rh Status Prepregnancy Weight lbs Domestic Partner Domestic Partner Phone Father Name Automation Qa Tester Status 03/22/20 25 1 Adrian Dobson OPEN Fetus Data First Name Last Name Admitted to NICU Weight (g) Sex Living Outcome Pediatric Complications Fetus ID Race Codes Race Delivery Type 10222 Mike Calculation Initial Mike Date Initial Exam [...] Weight in lbs Pre/Post Dialysis Refused Weight 171.648868097967 BP Diastolic BP Location Tested BP Systolic [...] Weight in lbs Pre/Post Dialysis Refused Weight 184.343744510352 BP Diastolic BP Location Tested BP Systolic [...] Type Weight in lbs Pre/Post Dialysis Refused 190.354337630998 BP Diastolic BP Location Tested BP Systolic [...] Type Weight in lbs Pre/Post Dialysis Refused 204.867190702628 BP Diastolic BP Location Tested BP Systolic [...] Type Weight in lbs Pre/Post Dialysis Refused 210.927272813714 BP Diastolic BP Location Tested BP Systolic [...] Type Weight in lbs Pre/Post Dialysis Refused 203.67405893280 BP Diastolic BP Location Tested BP Systolic [...]
--- OUTSIDE RECORDS SUMMARY | 2025-06-09 11:54 | XMS_ITS | Clinical Summary ---
Author Organization [facility] [address] Address [address] [place] [address] Care Team Providers Care Evp Strategy Name Role Phone No, Physician Primary Care Provider [phone] Allergies Active Allergy Reactions Criticality Noted Date Comments Nitrofurantoin Nausea And Vomiting 11/01/2019 Nitrofurantoin Monohyd/M-Cryst Vomiting Low 12/04 Medications PNV cmb [id number]-[id number] a-3-dha 29 mg iron- 1 mg-200 mg combo pack Take by mouth daily Active promethazine (PHENERGAN) 25 mg tablet Take 1 tablet (25 mg total) by mouth every 6 (six) hours as needed for nausea or vomiting 30 tablet 01/02/2025 Active buPROPion (WELLBUTRIN) 100 mg tablet Take 1 tablet (100 mg total) by mouth 2 (two) times a day 60 tablet 01/02/2025 Active aspirin 81 mg chewable tablet Take 1 tablet (81 mg total) by mouth daily 30 tablet 11 01/02/2025 01/03/20 26 Active sertraline (ZOLOFT) 50 mg tablet Take 1 tablet (50 mg total) by mouth daily 30 tablet 5 02/09/2025 08/08/19 26 Active ondansetron (ZOFRAN) 4 mg tablet Take 1 tablet (4 mg total) by mouth every 8 (eight) hours as needed for nausea or vomiting 20 tablet 03/02/2025 Active Active Problems Problem Noted Date Diagnosed Date Vulvar burning 02/23/2025 Assessment & Plan (02/23/2025 5:06 PM CDT): Normal appearing on exam today Options discussed Comfort measures discussed Asset Protection Representative done Will call in metrogel since she has odor With her nausea, I dont want to do flagyl She will decide if she is irritated enough to use before the vp training comes back. Marijuana use 01/04/2025 Overview (01/04/2025): 01/04/25- uds positive Supervision of normal 01/02/2025 Low grade squamous intraepit h lesion on cytologic smear cervix (lgsil) 01/02/2025 Overview (01/02/2025): 2023 - s/p colpo Assessment & Plan (01/02/2025 5:23 PM CDT): Pap repeated today Personality disorder 05/05/2019 Overview (01/02/2025): Very bad depression Childhood trauma Becomes mean when hurting emotionally Is in therapy Would like to restrart her meds. She had good results with the welbutrin Will restart it over the zoloft We discussed that this antidepressant is not thought to cause defects. Some people recommend stopping in the third trimester as the babies whose moms take it through delivery seem to be more jittery as if the were withdrawaling from it. This is typically managed by swaddling and comforting by the family. The hospital here has seen an increase in the number of babies whose mothers have been on certain antidepressants not want to take the first breaths. Because of that we now have respiratory therapy at all deliveries where antidepressants have been used, just as a precaution. Assessment & Plan (01/02/2025 2:52 PM CDT): Very bad depression Childhood trauma Becomes mean when hurting emotionally Is in therapy Would like to restrart her meds. She had good results with the welbutrin Will restart it over the zoloft We discussed that this antidepressant is not thought to cause defects. Some people recommend stopping in the third trimester as the babies whose moms take it through delivery seem to be more jittery as if the were withdrawaling from it. This is typically managed by swaddling and comforting by the family. The hospital here has seen an increase in the number of babies whose mothers have been on certain antidepressants not want to take the first breaths. Because of that we now have respiratory therapy at all deliveries where antidepressants have been used, just as a precaution. Estimated Date of Delivery Comme nts Yes 07/22/2025 Based on last me nstrual period of 10/15/2024 (Approximate) Resolved Problems Problem Noted Date Diagnosed Date Resolved Date S/P breast reconstruction, bilateral 11/08/2019 01/02/2025 Immunizations Immunization Administration Dates Next Due Hep B Vaccine 02/03/2020 Influenza, Quadrivalent, Noemi l Culture-based MDCK, Preservative Free, Antibiotic Free, Intramuscular 03/20/2020 Influenza, Quadrivalent, Spl it, Preservative Free, Intramuscular 05/03/2021,04/18/2018 PPD TEST, UNSPECIFIED 10/29/2021 [employer] SARS-CoV-2 Monovalent Vaccination (12+ Yrs) PURPLE 01/08/2021 Tdap 12/22/2019 Surgical History Surgery Date Site/Laterality Comments RECONSTRUCTION BREAST IMMEDI ATE / DELAYED W/ TISSUE NURSE INFECTION CONTROL Medical History Medical History Date Comments Pelvic congestion syndrome Anxiety Depression S/P breast reconstruction, bilateral 11/08/2019 Family History Medical History Relation Name Comments Diabetes Father Diabetes Maternal Grandfather Hypertension Mother Cancer Neg Hx no colon, breas t or senior application programmer cancer cmt 01/02/25 Relation Name Status Comments Father Maternal Grandfather Mother Social History Tobacco Use Types Packs/Day Years Used Date Smoking Tobacco: Never Smokeless Tobacco: Never Tobacco Cessation:Counseling Given: Not Answered Humiliation, Afraid, Rape, and Kick questionnair e Answer Date Recorded Within the last year, have y ou been afraid of your partner or ex-partner? No 01/02/2025 Within the last year, have y ou been humiliated or emotionally abused in other ways by your partner or ex-partner? No Within the last year, have y ou been kicked, hit, slapped, or otherwise physically hurt by your partner or ex-partner? No 01/02/2025 Within the last year, have y ou been raped or forced to have any kind of sexual activity by your partner or ex-partner? No 01/02/2025 AUDIT-C Answer Date Recorded Q1: How often do you have a drink containing alcohol? Never 01/02/2025 Q2: How many drinks containi ng alcohol do you have on a typical day when you are drinking? Patient does not drink Q3: How often do you have si x or more drinks on one occasion? Never 01/02/2025 [place] Depression Scale Answer Date Recorded [place] Depression Scale Total 11 01/30/2025 The thought of harming myself has occurred to me . Never 01/30/2025 Personal Safety Answer Date Recorded Have you ever been in or are you currently in a harmful physical or emotional relationship or is someone making you feel afraid or unsafe? 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 No ptl. Summary Episode Dates Number of Fetuses Estimated Date of Delivery 12/26/2024 - Present (06/09/2025) 1 07/22/2025 (set by Neha Cavazos MD on 01/02/2025 based on Last Menstrual Period on 10/15/2024 (Approximate)) Dating Summary Based On CARLINE GA Diff Last Menstrual Period on 10/15/2024 (Approximate ) 07/22/2025 Working Ultrasound on 12/19/2024 07/22/2025 Same GA:9w2d Ultrasound on 03/02/2025 07/20/2025 +2d GA:20w0d Overview and Plan :Coe Support person:Sofi LILLY Delivery Plans Post-Delivery Plans Planned delivery method:Vaginal Feeding intentions:Breast Milk Planned anesthesia:Epidural Acceptable blood products:All Overview The pt was asked if she had her Advance Care Planning in place as she is at the beginning of her . She does not. She is here today with paola Carlson. She wants him to make decisions for her. She was encouraged to go to the My Chart portal and find the ACP site. She was encouraged to appoint the person she would want to make decisions for her if she can not. She was asked to appoint a second person in case the first is not available. We discussed that there are questions that they can go through to make sure the person knows what her wishes would be. I spent <15 minutes in this conversation with her. Neha Cavazos MD 01/02/25 Vitals Pregravid Weight Height TWG (As of 06/09/2025) Pregrav id BMI 167.6 cm (5' 6) Notes Progress Notes - Clinical [place] pport - 03/02/2025 - GA:19w5d 03/02/2025 - - Surekha Bowden RN Patient is here for a weight and ketone check. Patient has anatomy scan today Urine dip is negative for glucose, protein and ketones. Patient is feeling improved on the n/v Taking zofran,which has helped. I will refill today, Dr. Cavazos ok'ed. Patient having some constipation and taking colace. Stated she can take it 3 times a day. Patient will return in 3 week for ARIAN with Dr. Cavazos. Patient weight is increased [address] Cavazos aware of all information MARTIN Irby Progress Notes - Office Visi t - 02/23/2025 - GA:18w5d 02/23/2025 - wd - Neha Cavazos MD 18w5d She is feeling better Up 3 pounds Able to eat Likes the zofran Still has ketones To basa- taking. cfDNA testing- negative, negative- girl. Rto Thursday for repeat ketones. Diet discussed She is not having burning with urination, but after. Hannah all day Odor D/c- clear Progress Notes - Clinical [place] pport - 02/21/2025 - GA:18w3d 02/21/2025 - w3d - Rosario Gonzales MA Patient presents today for an OB weight and ketone check. Last weight was 160 lbs on 02/20/25 (yesterday). Current weight is 160.6 lbs today. Urinalysis performed and positive for moderate ketones. This is improved some from yesterday. Medications, pharmacy, and allergies reviewed. Vitals taken. Taking PNV intermittently. Discontinued Phenergan d/t concerns about interaction with Zoloft after researching. Started Zofran last night and this has been helpful. No vomiting since yesterday. Nausea and lack of appetite still present. She tells me she is drinking plenty of fluids. Urine culture from yesterday is still in process. She continues to have odor/burning. Spoke with Zoila Lobo NP, as Dr. Cavazos has not arrived just yet. Zoila is happy with the improvement in ketones and stability of weight. Patient was informed that once we have the urine culture results, we will better know how to treat per growth and susceptibility. OF NOTE: Nitrofurantoin allergy MARTIN Irby encouraged patient to continue drinking fluids, taking Zofran, and that we will call her once we know more. She is aware we are hopeful to see even more improvement come from this regimen. Patient voices understanding. Progress Notes - Clinical [place] pport - 02/20/2025 - GA:18w2d 02/20/2025 - 18w2d - [place] MA Madhuri was seen in office today for RN visit for weight, ketone check, and Urine for UA and Urine Cx. Pt weight today was 160 last weight on 01-30-25 167. Large Ketones. Urine sent for UA with mirco and urine culture. Pt states she hasn't been able to hold anything down. Progress Notes - Office Visi t - 01/30/2025 - GA:15w2d 01/30/2025 - w2d - Zoila Lobo NP 15w2d Morning sickness- improving.Phenergan is helping, not having to use as much. Depression scale reviewed- 04/24 She is doing well on the Wellbutrin. Labs reviewed as normal. To basa- taking. cfDNA testing- negative, negative- girl. Diet and exercise discussed- to spinning babies. Flu, Covid, RSV vaccination recommended. RTO 4 weeks with . Claudio DE LA O Progress Notes - Office Visi t - 01/02/2025 - GA:11w2d 01/02/2025 - - Surekha Bowden RN Patient desires genetic testing for prequel and foresight screening. Tubes given to patient to take to the lab to have drawn with her new OB labs. Patient returned tubes to us and I will send out from here. Prequel lot # [id number] Ex 08/28/2025 Foresight Lot # [id number] Ex 08/12/2025 Tracking #[id number] MARTIN Irby 01/02/2025 - - Neha Cavazos MD Images from the original note were not included. Initial OB Visit Initial Visit Subjective: Madhuri Hung is a 29 y.o., at 11w2d , based on LMP and confirmed by first trimester ultrasound who presents for initial visit. Morning sickness is still bad. Weight is up 9 pounds She can eat chips on her bad days. She has been taking the pepcid and unisom at night. Will try phenergan. Use reviewed. Hx of abnormal pap 07/21/23 LGSIL (Colposcopy 09/08/23). Menstrual History: Menarche Age: 13 years Patient's last menstrual period was 10/15/2024 (approximate). Period Cycle (Days): (5-7) Period Duration (Days): 27 Sexual History: Sexual History Age of First Sexual Encounter: 17 years # of sexual partners in lifetime: 8 Gender of sexual partners: Men Sexually Transmitted Infection History: Other (Comment) (HPV) Sexual Assault: No OB History 3 Para 1 Term 1 AB 1 Living 1 SAB IAB Ectopic Multiple Live Births # Outcome Date GA Labor/2nd Weight Sex Type Anes PTL Lv A1 A5 1 Term 02/04/15 3.515 kg (7 lb 12 oz) M Vaginal 2 AB 2020 3 Current Obstetric Comments No htn or dm. No ptl. Objective: BP 116/72 (BP Location: Left arm, Patient Position: Sitting) Ht 167.6 cm (5' 6) Wt 159 lb (72.1 kg) LMP 10/15/2024 (Approximate) BMI 25.66 kg/m Physical OB Exam: Last filed by Neha Cavazos MD on 01/02/2025 5:24 PM General Physical Exam HEENT: normal Heart: normal Skin: normal Thyroid: normal Lungs: normal Extremities: normal Lymph Nodes: normal Breasts: normal Neurological: normal grossly Abdomen: normal Pelvic Exam Vulva: normal Vagina: normal Cervix: normal Prominent vessels in llq of os Uterus: 10-12 weeks Adnexa: normal Rectum: normal Spines: average Subpubic Arch: normal See flow sheet for gestation -specific examination and vitals. Assessment: Patient is a 29 y.o., at 11w2d, size = dates. Diagnoses and all orders for this visit: Encounter for supervision of other normal in first trimester (Primary) - Urine culture Urine, clean voided; Future - Vitamin D 25 hydroxy; Future - Varicella Zoster IgG antibody Blood; Future - Type and screen; Future - Rubella IgG antibody Blood; Future - RPR Blood; Future - HIV 1/2 Antibody plus p24 Antigen Blood; Future - Hepatitis C antibody Blood; Future - Hepatitis B Surface Antigen Blood; Future - CBC with auto differential; Future - Drugs of Abuse Screen, Urine with Reflex Confirmation; Future - Pap, reflex HPV; Future - N. gonorrhoeae/C. trachomatis Amplification Thin prep-Endocervical; Future 11 weeks gestation of - Urine culture Urine, clean voided; Future - Vitamin D 25 hydroxy; Future - Varicella Zoster IgG antibody Blood; Future - Type and screen; Future - Rubella IgG antibody Blood; Future - RPR Blood; Future - HIV 1/2 Antibody plus p24 Antigen Blood; Future - Hepatitis C antibody Blood; Future - Hepatitis B Surface Antigen Blood; Future - CBC with auto differential; Future - Drugs of Abuse Screen, Urine with Reflex Confirmation; Future - Pap, reflex HPV; Future - N. gonorrhoeae/C. trachomatis Amplification Thin prep-Endocervical; Future Personality disorder (HCC) Assessment & Plan: Very bad depression Childhood trauma Becomes mean when hurting emotionally Is in therapy Would like to restrart her meds. She had good results with the welbutrin Will restart it over the zoloft We discussed that this antidepressant is not thought to cause defects. Some people recommend stopping in the third trimester as the babies whose moms take it through delivery seem to be more jittery as if the were withdrawaling from it. This is typically managed by swaddling and comforting by the family. The hospital here has seen an increase in the number of babies whose mothers have been on certain antidepressants not want to take the first breaths. Because of that we now have respiratory therapy at all deliveries where antidepressants have been used, just as a precaution. Low grade squamous intraepith lesion on cytologic smear cervix (lgsil) Assessment & Plan: Pap repeated today Other orders - promethazine (PHENERGAN) 25 mg tablet; Take 1 tablet (25 mg total) by mouth every 6 (six) hours as needed for nausea or vomiting - buPROPion (WELLBUTRIN) 100 mg tablet; Take 1 tablet (100 mg total) by mouth 2 (two) times a day - aspirin 81 mg chewable tablet; Take 1 tablet (81 mg total) by mouth daily Plan: -dating US completed previously -PNL ordered. We will discuss at her next visit. -To start BASA -pap and std testing done today. The results will go to the portal. If she doesn't see them in a week, to call the office. -NOB packet reviewed with the pt and her questions were answered. They would like to do cell free dna testing and carrier screening. False positives and negatives discussed. To gain between 25-35 pounds for the Diet and exercise discussed. To vitamins once morning sickness is better. Call schedule reviewed. Visits with Zoila discussed. Follow up in 4 weeks. Neha Cavazos MD 01/02/2025 Last Filed Vital Signs Vital Sign Reading Time Taken Comments Blood Pressure 130/80 02/23/2025 4:12 PM CDT Pulse 86 11/16/2024 3:42 PM CDT Temperature 36.2 C (97.1 F) 11/16/2024 3:42 PM CDT Respiratory Rate 16 11/16/2024 3:42 PM CDT Oxygen Saturation 100% 11/16/2024 3:42 PM CDT Inhaled Oxygen Concentration - - Weight 74.8 kg (165 lb) 03/02/2025 1:05 PM CDT Height 167.6 cm (5' 6) 03/02/2025 1:05 PM CDT Body Mass Index 26.63 03/02/2025 1:05 PM CDT Plan of Treatment Health Maintenance Due Date Last Done Comments Regular Well Visit/Exam 18-64 10/20/2013 HPV Vaccines (1 - 3-dose SCDM series) 10/20/2022 Covid-19 Vaccine ( season) 2025 01/29/2021, 01/08/2021 Influenza Vaccine (#1) 2025 , 03/20/2020, 04/18/2018 Cervical Cancer Screening 01/02/2026 01/02/2025 Depression Screening 01/30/2026 01/30/2025 DTaP/Tdap/Td Vaccine (2 - Td or Tdap) 12/21/2029 12/22/2019 Hepatitis B Screening Completed 02/03/2020 Hepatitis C Screening Completed 01/02/2025 Pneumococcal vaccine <65 Aged Out No longer eligible based on patient's age to complete this topic Varicella Vaccines Discontinued Procedures Procedure Name Priority Date/Time Associated Diagnosis Comments HEPATITIS C ANTIBODY Routine 01/02/2025 3:55 PM CDT Encounter for supervision of other normal in first trimester 11 weeks gestation of PAP, REFLEX HPV Routine 01/02/2025 3:43 PM CDT Encounter for supervision of other normal in first trimester 11 weeks gestation of from Last 3 Months or Most Recently Relevant to Health Maintenance Results * Hepatitis C antibody Blood (01/02/2025 3:55 PM CDT) Hep C Ab Nonreactive Nonreactive Comment: Interpretive Data Nonreactive: Antibodies to HCV not detected. Does NOT exclude the possibility of recent exposure to HCV. Equivocal: Equivocal for HCV antibodies. Supplemental molecular testing will be automatically performed to determine infection status in accordance with current CDC screening recommendations. Reactive: Positive for HCV antibodies. This may represent current or past HCV infection. Supplemental molecular testing will be automatically performed to determine current infection status in accordance with current CDC screening recommendations. Interpretive data was last revised on 2019. Testing performed by: [facility], [address] [place] [address]., [id number] Blood 01/02/2025 3:55 PM CDT 01/03/2025 9:09 AM CDT us Neha Cavazos MD LAB MICROBIOLOGY - GENERAL ORDERABLES Final Result Performing Organization Address City/State/[facility] Co de Phone Number [facility] [place]) [address] [facility] Department [place] [address] * Pap, reflex HPV (01/02/2025 3:43 PM CDT) Clinical indication Comment [facility] - 01 Comment:NEGATIVE FOR INTRAEP ITHELIAL LESION OR MALIGNANCY. Specimen adequacy: Comment [facility] - 01 Comment: Satisfactory for evaluation. Endocervical and/or squamous metaplastic cells (endocervical component) are present. Clinician provided ICD10 Comment [facility] 02 Comment: Z34.81 Z3A.11 Performed by Comment [facility] - 01 Comment:Kayy Valente, Cyto logist (ASCP) . . [facility] - 01 Note: Comment [facility] 02 Comment: The Pap smear is a screening test designed to aid in the detection of premalignant and malignant conditions of the uterine cervix. It is not a diagnostic procedure and should not be used as the sole means of detecting cervical cancer. Both false-positive and false-negative reports do occur. Test methodology Comment [facility] 02 Comment: This liquid based ThinPrep(R) pap test was screened with the use of an image guided system. . Comment [facility] - 01 Comment: The HPV DNA reflex criteria were not met with this specimen result therefore, no HPV testing was performed. Thin prep 01/02/2025 3:43 PM CDT 01/02/2025 Narrative [facility] - 01/09/2025 8:09 PM CDT Performed at: - [facility] [address] [place] [id number] Equipment Operator: Cornelio Forman MD, Phone: [phone] Performed at: Lab[id number] Road Equipment Operator: Johana Bowman MD, Phone: [phone] Specimen Comment: [id number] Specimen Comment: No. of containers..01 ThinPrep Vial Neha Cavazos MD LAB CYTOLOGY ORDERA BLES Final Result Performing Organization Address City/State/[facility] Co de Phone Number [facility] - 01 LAB [facility] 02 from Last 3 Months or Most Recently Relevant to Health Maintenance Insurance [facility] CHO[facility] PLUS Care Teams Evp Strategy Relationship Specialty Start Date End Date No, Physician PCP - General 01/23/21
--- OUTSIDE RECORDS SUMMARY | 2025-06-09 11:54 | XMS_ITS | Continuity of Care Document ---
Author Organization [facility] Address [address] [place] [address] [place] [address] Assessment No assessment recorded. Plan of Treatment [...] obstetr ic, follow- up 2024 025 [email or web address] [place], [address], [address], [place], [address], 03/22/2025 15:11:21 Medication Orders None recorde d. Patient TargetsNo targets recorded. Patient InstructionsNo instructions recorded. Reason for Referral None Reported. Results Created Date Observation Date Name Description Value Unit Range Abnormal Flag Note LastModifiedBy Organization Detail LastModifiedTime 03/22/2003/22/2025 CT/GC AND TRICH OMONA S VAGIN JOSSIE (RRNA ), URINE chlamydia trachomatis, PCR Negati ve negati ve Not Available [facility] (Lab) [address], [place], [address], 03/25/2025 06:40:53 03/22/2003/22/2025 CT/GC AND TRICH OMONA S VAGIN JOSSIE (RRNA ), URINE neisseria gonorrhoeae, PCR Negati ve negati ve Not Available [facility] (Lab) [address] [facility], [place], [address], 03/25/2025 06:40:53 03/22/2003/22/2025 CT/GC AND TRICH OMONA S VAGIN JOSSIE (RRNA ), URINE trichomonas vaginalis ribosomal RNA (rrna) Negati ve negati ve 49_CL _SOUR CETVG : Urine - Bladd er Not Available [facility] (Lab) [address] [facility], [place], [address], 03/25/2025 06:40:53 03/22/2003/22/2025 CULTU RE: URINE result report SEE RESULT S BELOW abnormal Test: Cultu re: Urine Speci men Sourc e: Urine - Clean Catch Speci men Type: Urine Speci men Date: 2024 1041 Resul t Date: 03/25 0537 Resul t Statu s: Final resul t Abnor mal: Yes Resul ting Lab: [facility] [address] [facility] [address] Tel: CULTU RE ----- ----- ----- --- [...] ms and tetra cycli ne. Not Available [facility] (Lab) [address] [facility], [place], [address], 03/25/2025 06:40:54 03/22/2003/22/2025 US, obste tric, follo w-up No observ ation record ed. [email or web address] [place] [address], [place], [address], 03/22/2025 15:08:09 03/22/20 25 03/22/2025 US, obste tric, follo w-up No observ ation record ed. [email or web address] Ruthann [address], [place], [address], 03/24/2025 01:45:55 05/02/20 25 05/03/2025 US, obste tric, follo w-up No observ ation record ed. [facility] [address], [place], [address], 05/03/2025 13:29:24 05/02/20 25 05/02/2025 US, obste tric, follo w-up No observ ation record ed. RAJIV Ruthann [address], [place], [address], 05/05/2025 17:50:17 06/01/20 25 06/01/2025 US, obste tric, follo w-up No observ ation record ed. [facility] [address], [place], [address], 06/01/2025 17:30:03 06/01/20 25 06/01/2025 US, obste tric, follo w-up No observ ation record ed. [email or web address] Ruthann [address], [place], [address], 06/05/2025 11:37:37 Result Notes None recorded. Problems Name Problem SNOMED Code Status Onset Date Resolution Date Notes Provider Name and Address Organization Details Recorded Time 18722485 Active 025 Courtney mandujano [place] - [facility] 10:46:32 Problem Notes None recorded. Procedures Surgical History Date Name Laterality Status Provider Name and Address Organization Details Recorded Time 5 Date of Last Pap Smear completed [facility] 03/22/2025 10:40:36 0 removal of breast implant completed [facility] 03/22/2025 10:46:06 2 Breast Implants completed [facility] 03/22/2025 10:45:46 Imaging Results None recorded. Procedure Notes None recorded. Medical Equipment None Reported. Allergies Allergen ID Allergen Name Allergen Category Reaction Reaction Severity Criticality Documentation Date Start Date Code Code System Note Provider Name and Address Organization Details Recorded Time 92889 nitrofura ntoin medicatio n Not available Not available Not available 03/22/[address] [facility] 5 10:22:37 22205 Macrobid medicatio n nausea vomiting Not available Not available Not available 05/02/20252019 85821 1 RxNorm Not Available [employer] - prod 03:19:41 07658 nitrofura ntoin, macrocrys tals / nitrofura ntoin, monohydra te medicatio n vomiting Not available low 05/02/20252019 86960 2 RxNorm Not Available [employer] - prod 03:19:44 Medications Name [...] Updated DateTime 03/22/2025 168.91 cm 27.2 kg/m2 15324.3 g 123/82 mm[Hg] Courtney Wynne [facility] 03/22/2025 10:40:18 Social History Question Answer Notes LastModified by Organizat ion Details LastModified Time Tobacco Smoking Status Never Smoker Courtney Wynne [facility] 03/22/2025 10:43:09 Are You Blind Or Do You Have Difficulty Seeing? Yes Glasses [email or web address] Information not available 03/22/2025 What Is Your Level Of Caffeine Consumption? Moderate [email or web address] Information not available 03/22/2025 In The 14 [...] To Be High Risk For COVID-19? No [email or web address] Information not available 03/22/2025 Are You Deaf Or Do You Have Serious Difficulty Hearing? Yes [email or web address] Information not available 03/22/2025 What Type Of Diet Are You Following? REGULAR [email or web address] Information not available 03/22/2025 What Is The Highest Grade Or Level Of School You Have Completed Or The Highest Degree You Have Received? BU51368-9 [email or web address] Information not available 03/22/2025 Are There Any Guns Present In Your Home? No [email or web address] Information not available 03/22/2025 Do You Use Protection During Sex? No [email or web address] Information not available 03/22/2025 Do You Use Your Seat Belt Or Car Seat Routinely? Yes Information not available 03/22/2025 Are You Sexually Active? Yes [email or web address] Information not available 03/22/2025 Do You Have Smoke And Carbon Monoxide Detectors In Your Home? Yes [email or web address] Information not available 03/22/2025 Do You Use Sunscreen Routinely? No Information not available 03/22/2025 Do You Have Difficulty Walking Or Climbing Stairs? No [email or web address] Information not available 03/22/2025 Sex: Unknown Functional Status Question Answer Note LastModified by Organizat ion Details LastModified Time What is your level of alcohol consumption? None [email or web address] Information not available 03/22/2025 Are you currently employed? Yes Occupational thearpy Steam[employer] Information not available 03/22/2025 Are you able to walk independently without assistance or assistive devices? YESWOREST [email or web address] Information not available 03/22/2025 Are you able to care for yourself independently? Yes Information not available 03/22/2025 Do you have difficulty dressing, bathing, grooming, or toileting? No Information not available 03/22/2025 Mental Status Question Answer Note LastModified by Organization D etails LastModified Time Do you feel stressed (tense, restless, nervous, or anxious, or unable to sleep at night)? AN5512-4 [email or web address] Information not available 03/22/2025 Family History Relationship Description Onset Age of this Age Resolved Age Notes LastModified by Organization Details LastModified Time Mother Diabetes mellitus [email or web address] Not available 2024 10:50:47 Mother Hypercholest erolemia [email or web address] Not available 2024 10:51:02 Mother Hypertensive disorder [email or web address] Not available 2024 10:51:13 Mother Cyst of ovary [email or web address] Not available 2024 09:30:08 Mother Prolapse of female genital organs [email or web address] Not available 2024 09:30:08 Mother Mental disorder [email or web address] Not available 2024 10:53:25 Maternal Grandfather Diabetes mellitus [email or web address] Not available 2024 10:50:47 Father Hypercholest erolemia [email or web address] Not available 2024 10:51:02 Father Hypertensive disorder [email or web address] Not available 2024 10:51:13 Father Mental disorder Not available 2024 10:53:25 Sister Cyst of ovary Not available 2024 09:30:08 Sister Mental disorder [email or web address] Not available 2024 10:53:25 Brother Mental disorder [email or web address] Not available 2024 10:53:25 Medical History Condition [...] ICD10 Code Diagnosis IMO Codes Diagnosis Note [id number] NIKKI VALENTE MD [place] [address] [address] 03/22/2025 09:28:57 03/22/2025 10:36:37 Observational assessment 152279173 Z03.74 Z3A.22 [id number] [id number] NIKKI VALENTE MD [place] [address] [address] 03/22/2025 09:45:08 03/22/2025 16:11:11 state of fetus 52746393 Z34.90 [id number] Health Concerns Section Related Observation LastModified by Organization Detai ls LastModified Time None Recorded Concern Status LastModified by Organization Details LastModified Time None Recorded Payers Encounter Date Sequence Insurance Name Policy Number Policy Combs Covered Member ID Combs Member ID Guarantor Name 03/22/2025 1 [facility] [id number] Madhuri Hung [id number] Madhuri Hung OBGyn Episode Ob Episode Information Episode Created Date Number of Fetuses Patient Bloodtype Patient rh Status Prepregnancy Weight lbs Domestic Partner Domestic Partner Phone Father Name Office Support Status 03/22/20 1 Adrian Dobson OPEN Fetus Data First Name Last Name Admitted to NICU Weight (g) Sex Living Outcome Pediatric Complications Fetus ID Race Codes Race Delivery Type [id number] Mike Calculation Initial Mike Date Initial Exam [...] Weight in lbs Pre/Post Dialysis Refused Weight 171.212554770075 BP Diastolic BP Location Tested BP Systolic [...] Weight in lbs Pre/Post Dialysis Refused Weight 184.498042564421 BP Diastolic BP Location Tested BP Systolic [...] Type Weight in lbs Pre/Post Dialysis Refused 190.544619795834 BP Diastolic BP Location Tested BP Systolic [...] Type Weight in lbs Pre/Post Dialysis Refused 204.660176038961 BP Diastolic BP Location Tested BP Systolic [...] Type Weight in lbs Pre/Post Dialysis Refused 210.159492546604 BP Diastolic BP Location Tested BP Systolic [...] Type Weight in lbs Pre/Post Dialysis Refused 203.40062417649 BP Diastolic BP Location Tested BP Systolic [...]
--- OUTSIDE RECORDS SUMMARY | 2025-06-09 11:55 | XMS_ITS | Continuity of Care Document ---
Author Organization [facility] Address [address] [place] [address] Assessment No assessment recorded. Plan of Treatment [...] Negati ve negati ve Not Available [facility] (Lab) [address], [place], [address], 03/25/2025 06:40:53 03/22/2003/22/2025 CT/GC AND TRICH OMONA S VAGIN JOSSIE (RRNA ), URINE neisseria gonorrhoeae, PCR Negati ve negati ve Not Available [facility] (Lab) [address] [place], [address], 03/25/2025 06:40:53 03/22/2003/22/2025 CT/GC AND TRICH OMONA S VAGIN JOSSIE (RRNA ), URINE trichomonas vaginalis ribosomal RNA (rrna) Negati ve negati ve 49_CL _SOUR CETVG : Urine - Bladd er Not Available [facility] (Lab) [address] [place], [address], 03/25/2025 06:40:53 03/22/2003/22/2025 CULTU RE: URINE result report SEE RESULT S BELOW abnormal Test: Cultu re: Urine Speci men Sourc e: Urine - Clean Catch Speci men Type: Urine Speci men Date: 2024 1041 Resul t Date: 03/25 0537 Resul t Statu s: Final resul t Abnor mal: Yes Resul ting Lab: [facility] [address] [facility] [address] Tel: CULTU RE ----- ----- ----- --- [...] and tetra cycli ne. Not Available [facility] (Lab) [address], [place], [address], 03/25/2025 06:40:54 04/18/2004/18/2025 HEMOG LOBIN (HGB) HGB 12.7 g/dL (based on docume nted legal sex) 11.6-[address] [facility] (Lab) [address] [facility], [place], [address], 04/19/2025 12:39:16 04/18/20 25 04/18/2025 HEMAT OCRIT (HCT) HCT 39.5 % (based on docume nted legal sex) 34.0-[address] [facility] (Lab) [address] [facility], [place], [address], 04/19/2025 12:39:16 04/18/20 25 04/18/2025 GTT - GESTA MELIDA L SCREE N, ACOG OB glucose, 1 hour screen 97 mg/dL 70-135 Not Available [facility] (Lab) [address] [facility], [place], [address], 04/19/2025 12:39:16 04/18/20 25 04/18/2025 HIV 1/2 ANTIG EN/AN TIBOD Y, REFLE X CONFI RMATI ON HIV antigen/anti body Nonrea ctive nonrea ctive HIV-1 antig en and HIV-1 /HIV- 2 antib odies were not detec sherlyn. No labor atory evide nce of HIV infec tion. Not Available [facility] (Lab) [address] [facility], [place], [address], 04/19/2025 12:39:17 04/18/20 25 04/18/2025 RPR SCREE N, REFLE X TITER /CONF IRMAT ION RPR qualitative Nonrea ctive nonrea ctive Not Available [facility] (Lab) [address] [facility], [place], [address], 04/19/2025 12:39:17 03/22/20 25 03/22/2025 US, obste tric, follo w-up No observ ation record ed. [email or web address] [place] [address], [place], [address], 03/22/2025 15:08:09 03/22/20 25 03/22/2025 US, obste tric, follo w-up No observ ation record ed. [email or web address] Ruthann [address], [place], [address], 03/24/2025 01:45:55 05/02/20 25 05/03/2025 US, obste tric, follo w-up No observ ation record ed. [facility] [address], [place], [address], 05/03/2025 13:29:24 05/02/20 25 05/02/2025 US, obste tric, follo w-up No observ ation record ed. RAJIV Ruthann [address], [place], [address], 05/05/2025 17:50:17 06/01/20 25 06/01/2025 US, obste tric, follo w-up No observ ation record ed. [facility] [address], [place], [address], 06/01/2025 17:30:03 06/01/20 25 06/01/2025 US, obste tric, follo w-up No observ ation record ed. yany Torrese [address], [place], [address], 06/05/2025 11:37:37 Result Notes None recorded. Problems Name Problem SNOMED Code Status Onset Date Resolution Date Notes Provider Name and Address Organization Details Recorded Time 65276874 [facility] 10:46:32 Problem Notes None recorded. Procedures Surgical History Date Name Laterality Status Provider Name and Address Organization Details Recorded Time 5 Date of Last Pap Smear completed [facility] 03/22/2025 10:40:36 0 removal of breast implant completed [facility] 03/22/2025 10:46:06 2 Breast Implants completed Courtney Wynne [facility] 03/22/2025 10:45:46 Imaging Results None recorded. Procedure Notes None recorded. Medical Equipment None Reported. Allergies Allergen ID Allergen Name Allergen Category Reaction Reaction Severity Criticality Documentation Date Start Date Code Code System Note Provider Name and Address Organization Details Recorded Time 03085 nitrofura ntoin medicatio n Not available Not available Not available 03/22/2025 7454 RxNorm Courtney Wynne [facility] 5 10:22:37 69234 Macrobid medicatio n nausea vomiting Not available Not available Not available 05/02/20252019 67205 1 RxNorm Not Available [employer] - prod 5 03:19:41 47336 nitrofura ntoin, macrocrys tals / nitrofura ntoin, monohydra te medicatio n vomiting Not available low 05/02/20252019 28992 2 RxNorm Not Available [employer] - prod 5 03:19:44 Medications [...] Address Organization Details Last Updated DateTime 05/02/2025 19182.550 3 g 30.2 kg/m2 168.91 cm 125/83 mm[Hg] Courtney Wynne [facility] 05/02/2025 16:52:18 Social History Question Answer Notes LastModified by Organizat ion Details LastModified Time Tobacco Smoking Status Never Smoker Courtney Wynne [facility] 03/22/2025 10:43:09 Are You Blind Or Do You Have Difficulty Seeing? Yes Glasses Information not available 03/22/2025 What Is Your Level Of Caffeine Consumption? Moderate Information not available 03/22/2025 In The 14 Days Before Symptom Onset, Have You Had Close Contact With A Laboratory-confir med COVID-19 While That Case Was Ill? No [email or web address] Information not available 03/22/2025 In The 14 Days Before Symptom Onset, Have You Had Close Contact With A Person Who Is Under Investigation For COVID-19 While That Person Was Ill? No [email or web address] Information not available 03/22/2025 Have You Been To An Area Known To Be High Risk For COVID-19? No [email or web address] Information not available 03/22/2025 Are You Deaf Or Do You Have Serious Difficulty Hearing? Yes [email or web address] Information not available 03/22/2025 What Type Of Diet Are You Following? REGULAR Information not available 03/22/2025 What Is The Highest Grade Or Level Of School You Have Completed Or The Highest Degree You Have Received? SG72707-3 [email or web address] Information not available 03/22/2025 Are There Any Guns Present In Your Home? No Information not available 03/22/2025 Do You Use Protection During Sex? No [email or web address] Information not available 03/22/2025 Do You Use Your Seat Belt Or Car Seat Routinely? Yes [email or web address] Information not available 03/22/2025 Are You Sexually Active? Yes Information not available 03/22/2025 Do You Have Smoke And Carbon Monoxide Detectors In Your Home? Yes [email or web address] Information not available 03/22/2025 Do You Use Sunscreen Routinely? No Information not available 03/22/2025 Do You Have Difficulty Walking Or Climbing Stairs? No Information not available 03/22/2025 Sex: Unknown Functional Status Question Answer Note LastModified by Organizat ion Details LastModified Time What is your level of alcohol consumption? 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 YESWOREST [email or web address] Information not available 03/22/2025 Are you able to care for yourself independently? Yes [email or web address] Information not available 03/22/2025 Do you have difficulty dressing, bathing, grooming, or toileting? No [email or web address] Information not available 03/22/2025 Mental Status Question Answer Note LastModified by Organization D etails LastModified Time Do you feel stressed (tense, restless, nervous, or anxious, or unable to sleep at night)? [email or web address] Information not available 03/22/2025 Family History Relationship Description Onset Age of this Age Resolved Age Notes LastModified by Organization Details LastModified Time Mother Diabetes mellitus Not available 2024 10:50:47 Mother Hypercholest erolemia Not available 2024 10:51:02 Mother Hypertensive disorder [email or web address] Not available 2024 10:51:13 Mother Cyst of ovary Not available 2024 09:30:08 Mother Prolapse of female genital organs [email or web address] Not available 2024 09:30:08 Mother Mental disorder Not available 2024 10:53:25 Maternal Grandfather Diabetes mellitus [email or web address] Not available 2024 10:50:47 Father Hypercholest erolemia [email or web address] Not available 2024 10:51:02 Father Hypertensive disorder [email or web address] Not available 2024 10:51:13 Father Mental disorder [email or web address] Not available 2024 10:53:25 Sister Cyst of ovary [email or web address] Not available 2024 09:30:08 Sister Mental disorder Not available 2024 10:53:25 Brother Mental disorder [email or web address] Not available 2024 10:53:25 Medical History Condition [...] ICD10 Code Diagnosis IMO Codes Diagnosis Note [id number] NIKKI VALENTE MD [place] [address] [address] 04/18/2025 09:02:55 04/18/2025 10:21:49 care status 313062841 Z34.83 [id number] [id number] NIKKI VALENTE MD [place] [address] [address] 05/02/2025 15:39:01 05/02/2025 16:54:42 Observational assessment 528836789 Z03.74 Z3A.29 3871467 [id number] NIKKI VALENTE MD [place] [address] [address] 05/02/2025 15:39:57 05/02/2025 17:08:25 care status 421808885 Z34.83 [id number] Health Concerns Section Related Observation LastModified by Organization Detai ls LastModified Time None Recorded Concern Status LastModified by Organization Details LastModified Time None Recorded Payers Encounter Date Sequence Insurance Name Policy Number Policy Combs Covered Member ID Combs Member ID Guarantor Name 05/02/2025 1 [facility] [id number] [facility] [id number] [facility] Notes Date Note Type Note Provider Name and Address Organization Details Recorded Time 05/02/2025 text/html Generic HPI TemplateReported by Patient NIKKI VALENTE MD [address], [place], [address], [facility] 05/02/2025 17:06:21 OBGyn Episode Ob Episode Information Episode Created Date Number of Fetuses Patient Bloodtype Patient rh Status Prepregnancy Weight lbs Domestic Partner Domestic Partner Phone Father Name Kiln Charger Status 03/22/20 25 1 Adrian Dobson OPEN Fetus Data First Name Last Name Admitted to NICU Weight (g) Sex Living Outcome Pediatric Complications Fetus ID Race Codes Race Delivery Type [id number] Mike Calculation Initial Mike Date Initial Exam [...] Weight in lbs Pre/Post Dialysis Refused Weight 171.369323782607 BP Diastolic BP Location Tested BP Systolic [...] Weight in lbs Pre/Post Dialysis Refused Weight 184.732848665291 BP Diastolic BP Location Tested BP Systolic [...] Type Weight in lbs Pre/Post Dialysis Refused 190.551084280532 BP Diastolic BP Location Tested BP Systolic [...] Type Weight in lbs Pre/Post Dialysis Refused 204.544751224200 BP Diastolic BP Location Tested BP Systolic [...] Type Weight in lbs Pre/Post Dialysis Refused 210.652905846255 BP Diastolic BP Location Tested BP Systolic [...] Type Weight in lbs Pre/Post Dialysis Refused 203.63418942113 BP Diastolic BP Location Tested BP Systolic [...]
[2025-06-09 12:15] VITALS: BP 115/71; PULSE 78
[2025-06-09 12:26] LABS: Hematocrit 39.2 % (37.0-47.0); Hemoglobin 13.1 g/dL (12.0-15.0); Immature Granulocyte Percent A 0.5 % (0-0.5); Lymphocytes Absolute Auto 1.91 K/mm3 (0.9-3.2); Mean Corpuscular HGB Conc 33.4 g/dl (32-36); Mean Corpuscular Hemoglobin 32.2 pg (26-34); Mean Corpuscular Volume 96.3 fl (80-100); Nucleated Red Blood Cells Absolute Auto 0.000 K/mm3 (0.0-0.012); Nucleated Red Blood Cells Perc 0.0 % (0.0-0.2); Platelet Count Result 245 k/mm3 (150-375); Red Blood Count 4.07 M/mm3 (4.2-5.4); White Blood Count 9.5 K/mm3 (4.5-10.0)
[2025-06-09] MEDS: ONDANSETRON INJ 4 MG/2 ML VIAL 8 MG IV PUSH (12:36)
[2025-06-09] MEDS: cefTRIAXone 1 GM in SODIUM CHLORIDE 0.9% IV 50 ML 100 ML IVPB (12:37)
[2025-06-09 12:46] LABS: Alanine Aminotransferase 13 U/L (6-35); Albumin Level 3.9 g/dL (3.5-5.1); Alkaline Phosphatase 141 U/L (38-126); Anion Gap 10 mmol/L (4-12); Aspartate Amino Transferase 24 U/L (14-36); Bilirubin,Total 0.6 mg/dL (0.2-1.3); Blood Urea Nitrogen 6 mg/dL (7-17); Calcium 9.3 mg/dL (8.4-10.2); Carbon Dioxide 20 mmol/L (22-30); Chloride 106 mmol/L (98-107); Estimated Glomerular Filt Rate > 60; Glucose 68 mg/dL (65-110); Potassium 3.9 mmol/L (3.4-5.0); Sodium 136 mmol/L (137-145); Total Protein 7.6 g/dL (6.3-8.2)
[2025-06-09] MEDS: DEXTROSE 5%/LACTATED RINGERS 1,000 ML 999 ML IV CONT (13:01)
[2025-06-09 14:38] VITALS: BMI 32.9
--- NOTE | 2025-06-09 14:38 | OBADM ---
This patient, Madhuri Hung, admitted to the OB room OB Post 115 for observation. Patient/family oriented to hospital policies and general routines including ID bracelet, bed and alarms, visiting hours, pain management, procedures, bathroom and other care routines, personal items, smoking policy, room service/diet, and visiting hours. Patient/Family are encouraged to report perceived risks to care and to ask questions if they do not understand what they are told or what they should do.
[2025-06-09 15:21] VITALS: BP 115/71; PULSE 78
--- NOTE | 2025-07-03 14:40 | P.PNOB_ITS ---
OB - Triage/Final Diagnosis Visit Information Comments/Additional reasons for admission: I have assessed the risk for this patient, Madhuri Hung, and determined that she would benefit from observation care. Evaluation Laboratory results: Laboratory Tests 06/09/25 12:16 WBC 9.5 RBC 4.07 L Hgb 13.1 Hct 39.2 MCV 96.3 MCH 32.2 MCHC 33.4 RDW 12.3 Plt Count 245 MPV 11.0 H Immature Gran % (Auto) 0.5 Neut % (Auto) 72.6 Lymph % (Auto) 20.0 [place] % (Auto) 6.3 Eos % (Auto) 0.3 Baso % (Auto) 0.3 Lymph # (Auto) 1.91 [place] # (Auto) 0.6 Eos # (Auto) 0.0 Baso # (Auto) 0.0 Abs Immat Gran (auto) 0.05 H Absolute Neuts (auto) 6.9 H Absolute Nucleated RBC 0.000 Nucleated RBC % 0.0 Sodium 136 L Potassium 3.9 Chloride 106 Carbon Dioxide 20 L Anion Gap 10 BUN 6 L Creatinine 0.57 L Estim Creat Clear Calc Not Reportable Estimated GFR > 60 Glucose 68 Calcium 9.3 Total Bilirubin 0.6 AST 24 ALT 13 Alkaline Phosphatase 141 H Total Protein 7.6 Albumin 3.9 Final Diagnosis (1) Nausea and vomiting: Code(s): R11.2 - Nausea with vomiting, unspecified Status: Acute
== END 2025-06-09 15:01 | disposition home or self-care (01) ==
PROVIDERS: Admitting Provider Obstetrics & Gynecology; Visit Provider Obstetrics & Gynecology
DX: O21.2 Late vomiting of pregnancy (principal); Z3A.34 34 weeks gestation of pregnancy
CPT/HCPCS: 36415; 59025; 80053; 85025; 96374; 96375; G0378; G0379; J0696; J2405; J7121